=== PATIENT | female | born 1995 | race Caucasian/White ===

== ENCOUNTER 2017-04-19 07:04 | Inpatient (IN) | payer MEDICAID ==
[2017-04-19] MEDS ORDERED: Sodium Chloride 0.9% 10 ML Syringe FLUSH PRN (07:27)
[2017-04-19] MEDS ORDERED: Oxytocin/Lactated Ringers 10 UNIT/1,000 ML BAG IV SCH ×2 (07:30)
[2017-04-19] MEDS: Lactated Ringers 1,000 ML IV SCH ×4 (08:05→14:49)
--- NOTE | 2017-04-19 08:34 | PCM.LDHP ---
L&D History of Present Illness - General Date of Service: 04/19/17 Admit Problem/Dx: Patient Status Order with Admit Dx/Problem 04/19/17 07:27 Patient Status [ADT] Routine Admission Diagnosis/Problem Admission Diagnosis/Problem 04/19/17 08:24 21-year-old 1 para 0 white female with an ENRIQUE of 04/16/2017 in for elective induction of labor for dates Source of Information: Patient History Limitations: Reports: No Limitations - History of Present Illness Introduction:: Hue is a 21-year-old 1 para 0 white female was admitted for elective induction of labor. She is a 40 and 3 evidence weeks gestational age is based upon a certain last and straight start a 22,016 and supported by 2 ultrasounds done 12/01/2016 and 12/29/2016. Her cervix is 2+ centimeters, 80% effaced, very soft, -2 station, mid position and baby is in cephalic presentation. Induction is with Pitocin and artificial rupture membranes. AROM as been done and reveals clear amniotic fluid. [employer] history 1 para 0 her LMP was 07/10/2016, definite caput with somewhat irregular menses. Menarche age 11, cycles q. 20 days, duration 5-7 days , using no control time conception. The patient has had some anxiety during the course of . Her group B strep screen was negative. She has a history of drug use with positive urine drug test for cannabinoids on 2015. She had an abnormal Paps or showing low-grade Andrew triply lesion. Colposcopy done on 10/06/2015 and recommendation was for repeat colposcopy and Pap smear . RhoGAM was given on 02/02/2017 and her T. dap was performed on 02/02/2017. course-patient was seen for her first visit in our clinic at 32 weeks gestational age. She is a transfer from [facility]. She made regular progress from that point on starting at a weight of 229.4 at the time of transfer and increasing to 254 for a 26 pound weight gain during the last trimester. She did make regular fundal height growth within normal parameters. Her vital signs remained stable throughout the course of the visits. Last fundal height was 41 cm and estimated weight is 8+ pounds. Laboratory testing and includes blood which is all negative with negative am asking. She is rubella immune. RPR is nonreactive. Hepatitis B and HIV assays were both negative. GC and Chlamydia both negative. Second trimester testing showed a platelet count of 268,000 and a 1 hour GTT of 84. Her hemoglobin was 11.6. Group B strep screen was negative. Allergies: None Medications: 1. Zantac 75 mg by mouth twice a day 2. vitamins 1 daily Past medical history: 1. Abnormal Pap smear with low-grade squamous intraepithelial lesion as evaluated on 09/08/2016 this encompasses HPV/mild dysplasia. 2. Illicit drug use including rocks is and marijuana, mass over year ago. Also used ecstasy during the summer of 2011 and acid during the summer. She is mushrooms in 2010 and methamphetamine use during the summer. Past surgical history unremarkable Family history: mother is age 44 alive and well. Father is age 45 with sleep apnea, otherwise healthy. One brother age 25 alive and well. Maternal grandmother secondary to smoking issues. Maternal grandfather secondary cause unknown but did have dementia. Paternal grandmother and paternal grandfather both alive and well. No family history of bleeding, , blood clotting, anesthesia problems noted. Social history: Patient is single, lives in [place]. Mother is Kandi Medrano. She does not use any significant loss of alcohol, drugs or tobacco at this time by her report but please see note above under past medical history for history of drug use even early in this . She does not work outside the home. Review of systems. Skin-negative Lungs-no shortness of breath or exercise intolerance Cardiovascular-no chest pain GI-negative -changes associated with Musculoskeletal-minimal swelling of lower extremities Neurologic-negative. Physical exam: In general the patient is a well-developed, well-nourished, overweight white female in no acute distress. She is alert and oriented x3 and appears his stated age. Pregravid weight was 229.4, height is 5 feet 4, body mass index is 34.6. Weight at last visit was 254.4 pounds for a 25 pound weight gain. Her last blood pressure was 122/70. heart rate on last evaluation was 156 beats per minute. Skin is warm and dry without lesions. HEENT, neck and back within normal limits Lungs are clear with good breath sounds in all dang. Cardiovascular exam shows regular rate and rhythm without murmurs. Breast exam is deferred-patient does desire to nurse. Abdomen is protuberant with last fundal height in clinic 41 cm. Baby in vertex presentation by [facility] maneuvers. Cervix is 2+ centimeters/80% effaced/very soft/-2/cephalic presentation/ midposition/artificial rupture membranes reveals clear amniotic fluid. Extremities show minimal edema, neurological exam within normal limits. ` - Related Data Allergies/Adverse Reactions: Allergies Allergy/AdvReac Type Severity Reaction Status Date / Time No Known Allergies Allergy Verified 04/19/17 07:25 Past Medical History Genitourinary History: Reports: STD, Other (See Below) Other Genitourinary History: history of chlamydia and gonorrhea and HPV. [employer] History: Reports: Other (See Below) Other OB/BYN History: LSIL on pap smear, colp done 10/06/2015 Psychiatric History: Reports: Anxiety, Depression - Past Surgical History HEENT Surgical History: Reports: Oral Surgery H&P Review of Systems - Review of Systems: Review Of Systems: See Below L&D Exam - Exam Exam: See Below - Vital Signs Vital Signs: Last Vital Signs Temp 36.9 C 04/19/17 07:27 Pulse 105 H 04/19/17 07:27 Resp 18 04/19/17 07:27 BP 112/76 04/19/17 07:27 Pulse Ox 98 04/19/17 07:27 Weight: 116.709 kg - Patient Data Lab Results last 24 hrs: Laboratory Results - last 24 hr 04/19/17 Range/Units 07:46 WBC 11.58 H (3.98-10.04) K/mm3 RBC 3.89 L (3.98-5.22) M/mm3 Hgb 11.4 (11.2-15.7) gm/L Hct 34.7 (34.1-44.9) % MCV 89.2 (79.4-94.8) fl MCH 29.3 (25.6-32.2) pg MCHC 32.9 (32.2-35.5) g/dl RDW Std Deviation 45.4 (36.4-46.3) fL Plt Count 302 (182-369) K/mm3 MPV 9.9 (9.4-12.3) fl Neut % (Auto) 68.5 (34.0-71.1) % Lymph % (Auto) 22.5 (19.3-51.7) % [place] % (Auto) 7.9 (4.7-12.5) % Eos % (Auto) 0.5 L (0.7-5.8) Baso % (Auto) 0.2 (0.1-1.2) % Neut # (Auto) 7.94 H (1.56-6.13) K/mm3 Lymph # (Auto) 2.60 (1.18-3.74) K/mm3 [place] # (Auto) 0.91 H (0.24-0.36) K/mm3 Eos # (Auto) 0.06 (0.04-0.36) K/mm3 Baso # (Auto) 0.02 (0.01-0.08) K/mm3 Result Diagrams: 04/19/17 07:46 Problem List Initiated/Reviewed/Updated: Yes Orders Last 24hrs: Active Orders 24 hr Category Date Time Status Activity as Tolerated [RC] PFP Care 04/19/17 07:27 Active Communication Order [RC] ASDIRECTED Care 04/19/17 07:27 Active Heart Tones [RC] ASDIRECTED Care 04/19/17 07:27 Active Notify Provider [RC] PFP Care 04/19/17 07:27 Active Notify Provider [RC] PRN Care 04/19/17 07:27 Active Peripheral IV Care [RC] . DIRECTED Care 04/19/17 07:27 Active Vital Signs [RC] PER UNIT ROUTINE Care 04/19/17 07:27 Active Clear Liquid Diet [DIET] Diet 04/19/17 Breakfast Active TYPE AND SCREEN [BBK] Routine Lab 04/19/17 07:46 Received Lactated Ringers [Ringers, Lactated] 1,000 ml Med 04/19/17 07:30 Active IV ASDIRECTED Oxytocin/Lactated Ringers [Pitocin in LR 10 Units/1,000 Med 04/19/17 07:30 Active ML] 10 unit in 1,000 ml IV TITRATE Oxytocin/Lactated Ringers [Pitocin in LR 10 Units/1,000 Med 04/19/17 07:30 Active ML] 10 unit in 1,000 ml IV TITRATE Sodium Chloride 0.9% [Saline Flush] Med 04/19/17 07:27 Active 10 ml FLUSH ASDIRECTED PRN Electronic Heart Tones Ext w TOCO [WOMSER] Ot 04/19/17 07:27 Ordered Routine Electronic Heart Tones Internal [WOMSER] Per Unit Ot 04/19/17 07:27 Ordered Routine Peripheral IV Insertion Adult [OM.PC] Routine Oth 04/19/17 07:27 Ordered Resuscitation Status Routine Resus Stat 04/19/17 07:27 Ordered Medication Orders Lactated Ringer's (Ringers, Lactated) 1,000 mls @ 100 mls/hr IV ASDIRECTED KAREN Last Admin: 04/19/17 08:05 Dose: 100 mls/hr Oxytocin/Lactated Ringer's (Pitocin In Lr 10 Units/1,000 Ml) 10 unit in 1,000 mls @ 500 mls/hr IV TITRATE KAREN PRN Reason: Protocol Oxytocin/Lactated Ringer's (Pitocin In Lr 10 Units/1,000 Ml) 10 unit in 1,000 mls @ 12 mls/hr IV TITRATE KAREN; 2 MUNITS/MIN PRN Reason: Protocol Last Admin: 04/19/17 08:05 Dose: 2 munits/min, 12 mls/hr Sodium Chloride (Saline Flush) 10 ml FLUSH ASDIRECTED PRN PRN Reason: Keep Vein Open Assessment/Plan Comment:: Assessment: 1. 40-3/7 week intrauterine , admitted for elective induction of labor. 2. Group B strep screen negative 3. Patient desires epidural in labor as needed 4. Plans to nurse. 5. History of drug use-multiple drugs to the course of the ureters but most recently only marijuana. 6. Tdap up-to-date Plan: 1. Pitocin/artificial rupture membranes induction this AM. The procedure, risks and benefits, alternatives of care including natural labor onset all discussed in detail patient. She appears to understand and wishes to proceed. 2. Epidural when necessary for pain control 3. Drug screen along with CBC 4 platelet count 4. Support nursing station. I. Anticipate normal spontaneous vaginal delivery.
--- NOTE | 2017-04-19 09:34 | PCM.PREANE ---
Preanesthetic Assessment - Procedure Proposed Procedure: Labor Epidural - Anesthesia/Transfusion/Family Hx Anesthesia History: Prior Anesthesia Without Reaction Type of Anesthesia Reaction: Unknown Family History of Anesthesia Reaction: No Transfusion History: No Prior Transfusion(s) Type of Transfusion Reactions: Reports: Unknown Intubation History: Unknown Additional History: Pt has a history of smoking and drug abuse. Denied any current smoking or drug use. - Review of Systems General: No Symptoms Pulmonary: No Symptoms Cardiovascular: No Symptoms Gastrointestinal: Other (GERD with ) Neurological: No Symptoms Other: Reports: Depression, Anxiety (not medicated ) - Physical Assessment O2 Sat by Pulse Oximetry: 98 Respiratory Rate: 18 Vital Signs: Last Vital Signs Temp 36.9 C 04/19/17 07:27 Pulse 105 H 04/19/17 07:27 Resp 18 04/19/17 07:27 BP 112/76 04/19/17 07:27 Pulse Ox 98 04/19/17 07:27 Height: 1.63 m Weight: 116.709 kg ASA Class: 2 Mental Status: Alert & Oriented x3 Airway Class: Mallampati = 2 Dentition: Reports: Broken Tooth/Teeth (right lower molar ) Thyro-Mental Finger Breadths: 3 Mouth Opening Finger Breadths: 3 ROM/Head Extension: Full Lungs: Clear to auscultation, Normal respiratory effort Cardiovascular: Regular Rhythm, Tachycardia (105) - Lab Values: Laboratory Last Values WBC 11.58 K/mm3 (3.98-10.04) H 04/19/17 07:46 RBC 3.89 M/mm3 (3.98-5.22) L 04/19/17 07:46 Hgb 11.4 gm/L (11.2-15.7) 04/19/17 07:46 Hct 34.7 % (34.1-44.9) 04/19/17 07:46 MCV 89.2 fl (79.4-94.8) 04/19/17 07:46 MCH 29.3 pg (25.6-32.2) 04/19/17 07:46 MCHC 32.9 g/dl (32.2-35.5) 04/19/17 07:46 RDW Std Deviation 45.4 fL (36.4-46.3) 04/19/17 07:46 Plt Count 302 K/mm3 (182-369) 04/19/17 07:46 MPV 9.9 fl (9.4-12.3) 04/19/17 07:46 Neut % (Auto) 68.5 % (34.0-71.1) 04/19/17 07:46 Lymph % (Auto) 22.5 % (19.3-51.7) 04/19/17 07:46 [place] % (Auto) 7.9 % (4.7-12.5) 04/19/17 07:46 Eos % (Auto) 0.5 (0.7-5.8) L 04/19/17 07:46 Baso % (Auto) 0.2 % (0.1-1.2) 04/19/17 07:46 Neut # (Auto) 7.94 K/mm3 (1.56-6.13) H 04/19/17 07:46 Lymph # (Auto) 2.60 K/mm3 (1.18-3.74) 04/19/17 07:46 [place] # (Auto) 0.91 K/mm3 (0.24-0.36) H 04/19/17 07:46 Eos # (Auto) 0.06 K/mm3 (0.04-0.36) 04/19/17 07:46 Baso # (Auto) 0.02 K/mm3 (0.01-0.08) 04/19/17 07:46 Blood Type O NEGATIVE 04/19/17 07:46 - Allergies Allergies/Adverse Reactions: Allergies Allergy/AdvReac Type Severity Reaction Status Date / Time No Known Allergies Allergy Verified 04/19/17 07:25 - Blood Blood Available: No Product(s) Available: None - Anesthesia Plan Pre-Op Medication Ordered: None - Acknowledgements Anesthesia Type Planned: Epidural Pt an Appropriate Candidate for the Planned Anesthesia: Yes Alternatives and Risks of Anesthesia Discussed w Pt/Guardian: Yes Pt/Guardian Understands and Agrees with Anesthesia Plan: Yes PreAnesthesia Questionnaire Genitourinary History: Reports: STD, Other (See Below) Other Genitourinary History: history of chlamydia and gonorrhea and HPV. [employer]ICIAN History: Reports: Other (See Below) Other OB/BYN History: LSIL on pap smear, colp done 10/06/2015 Psychiatric History: Reports: Anxiety, Depression - Past Surgical History HEENT Surgical History: Reports: Oral Surgery - SUBSTANCE USE Smoking Status *Q: Former Smoker Tobacco Use Within Last Twelve Months: Cigarettes Recreational Drug Use History: Yes Recreational Drug Type: Reports: Ecstasy, Marijuana/Hashish, Methamphetamine, Psilocybin (Mushrooms), Other (see below) - HOME MEDS Home Medications: Home Meds Doxylamine Succinate [Unisom] 25 mg PO 04/19/17 [History] Vits #90/Iron Fum/FA [ Formula] 04/19/17 [History] Ranitidine HCl [Zantac 75] 75 mg PO 04/19/17 [History] - CURRENT (IN HOUSE) MEDS Current Meds: Current Medications Lactated Ringer's (Ringers, Lactated) 1,000 mls @ 100 mls/hr IV ASDIRECTED KAREN Last Admin: 04/19/17 08:05 Dose: 100 mls/hr Oxytocin/Lactated Ringer's (Pitocin In Lr 10 Units/1,000 Ml) 10 unit in 1,000 mls @ 500 mls/hr IV TITRATE KAREN PRN Reason: Protocol Oxytocin/Lactated Ringer's (Pitocin In Lr 10 Units/1,000 Ml) 10 unit in 1,000 mls @ 12 mls/hr IV TITRATE KAREN; 2 MUNITS/MIN PRN Reason: Protocol Last Titration: 04/19/17 08:40 Dose: 4 munits/min, 24 mls/hr Sodium Chloride (Saline Flush) 10 ml FLUSH ASDIRECTED PRN PRN Reason: Keep Vein Open
[2017-04-19] MEDS ORDERED: ePHEDrine 50 MG/ML SDV IVPUSH PRN (09:38)
[2017-04-19] MEDS ORDERED: fentaNYL 100 MCG/2 ML SDV EPIDUR PRN (09:38)
[2017-04-19] MEDS ORDERED: diphenhydrAMINE 50 MG/ML SDV IVPUSH PRN (09:38)
[2017-04-19] MEDS ORDERED: Ondansetron 4 MG/2 ML SDV IVPUSH PRN (09:38)
[2017-04-19] MEDS ORDERED: Bupivacaine/fentaNYL/NS 100 ML Bag EPIDUR SCH (09:45)
[2017-04-19] MEDS ORDERED: Methylergonovine 0.2 MG/1 ML Amp ONE (21:36)
--- NOTE | 2017-04-19 21:53 | PCM.SN ---
- Free Text/Narrative Note: Hue is a 21-year-old 1 now para 1001 white female who is admitted on the a.m. of 04/19/2017 for elective induction of labor as she is 40-3/7 weeks gestational age. Pitocin was started and eventually there was artificial rupture membranes with resultant clear amniotic fluid. She progressed steadily to complete by approximately 1915 hours. She pushed for approximately 2 hours and 15 minutes made some progress but became very fatigued. Patient was offered options of continued pushing, or vacuum extraction. The procedures, risks, benefits, follow up and limitations of discussed in detail patient. She selected vacuum extraction which was then performed. Using a Silastic cup in routine fashion the patient was delivered with 1 contraction. The baby was a male weighing thousand 380 g (9 pounds 10.5 ounces) at 2126 hours in a right occiput anterior position. Apgars were 9 and 9. There was a first-degree perineal laceration which was repaired with a short running suture of 3-0 Monocryl. Placenta delivered initials fashion at 2128 hours. Some mild increased bleeding to a total estimated at 400 cc the was then appreciated. Patient was given Pitocin after delivery the baby and eventually given Methergine 0.2 mg IM with this her bleeding became well controlled. No lacerations were otherwise noted in the vagina. Patient's epidural catheter was removed. The umbilical cord had 3 vessels. Placenta was discarded per patient desire. Patient plans to nurse. Condition good.
[2017-04-19] MEDS ORDERED: Lidocaine 1% 20 ML MDV INJECT ONE (22:10)
[2017-04-19] MEDS ORDERED: Methylergonovine 0.2 MG/1 ML Amp IM PRN (22:12)
[2017-04-19] MEDS: Lidocaine 1% 50 ML MDV ONE ×2 (22:13→22:20)
[2017-04-19] MEDS ORDERED: Acetaminophen 325 MG Tab PO PRN (22:33)
[2017-04-19] MEDS ORDERED: Lanolin 100% Cream 7 GM Tube TOP PRN (22:33)
[2017-04-19] MEDS ORDERED: Benzocaine/Menthol 20%-0.5% Spray 56 GM Canister TOP PRN (22:33)
[2017-04-19] MEDS ORDERED: Witch Hazel Medicated Pads 100/Jar TOP PRN (22:33)
[2017-04-19] MEDS: Ibuprofen 600 MG Tab PO PRN (23:04)
[2017-04-20] MEDS: Ibuprofen 600 MG Tab PO PRN ×4 (04:02→20:49)
--- NOTE | 2017-04-20 08:51 | PCM.SN ---
- Free Text/Narrative Note: In general patient is doing very well. She is ambulatory, has minimal lochia and is voiding without problems. Epidural has worn off. She is nursing without concerns. Vital signs stable, patient is afebrile. Abdomen soft, nontender, uterus is just below the umbilicus. Legs are nontender. Some minimal edema is noted. Hemoglobin is 8.8. White count is 19.24 Assessment: 1. day 1, good recovery. 2. Symptoms 8.8-patient had approximately 400 cc of blood loss to delivery which may be a component of the decreased. No bleeding at this time and patient doing well clinically depressed 3. White count is not elevated-patient is a sinus infection. Plan: 1. Routine care. 2. Repeat CBC tomorrow to make sure hemoglobin stabilized and white count is decreased
--- NOTE | 2017-04-20 09:34 | PCM48HPAN ---
Post Anesthesia Note - EVALUATION WITHIN 48HRS OF ANESTHETIC Vital Signs in Normal Range: Yes Patient Participated in Evaluation: Yes Respiratory Function Stable: Yes Airway Patent: Yes Cardiovascular Function Stable: Yes Hydration Status Stable: Yes Pain Control Satisfactory: Yes Nausea and Vomiting Control Satisfactory: Yes Mental Status Recovered: Yes
[2017-04-20] MEDS: Prenatal Multivitamin with Calcium/Folic Acid/Iron Tab PO SCH (09:49)
[2017-04-20] MEDS: Docusate Sodium 100 MG Cap PO PRN (20:49)
[2017-04-21] MEDS: Ibuprofen 600 MG Tab PO PRN (07:23)
[2017-04-21] MEDS: Docusate Sodium 100 MG Cap PO PRN (07:23)
--- NOTE | 2017-04-21 07:37 | PCM.DCSUM1 ---
Discharge Summary - Hospital Course Free Text/Narrative:: Hue is a 21-year-old 1 now para 1001 white female who is admitted on the a.m. of 04/19/2017 for elective induction of labor as she is 40-3/7 weeks gestational age. Pitocin was started and eventually there was artificial rupture membranes with resultant clear amniotic fluid. She progressed steadily to complete by approximately 1915 hours. She pushed for approximately 2 hours and 15 minutes made some progress but became very fatigued. Patient was offered options of continued pushing, or vacuum extraction. The procedures, risks, benefits, follow up and limitations of discussed in detail patient. She selected vacuum extraction which was then performed. Using a Silastic cup in routine fashion the patient was delivered with 1 contraction. The baby was a male infant weighing thousand 380 g (9 pounds 10.5 ounces) at 2126 hours in a right occiput anterior position. Apgars were 9 and 9. There was a first-degree perineal laceration which was repaired with a short running suture of 3-0 Monocryl. Placenta delivered initials fashion at 2128 hours. Some mild increased bleeding to a total estimated at 400 cc the was then appreciated. Patient was given Pitocin after delivery the baby and eventually given Methergine 0.2 mg IM with this her bleeding became well controlled. No lacerations were otherwise noted in the vagina. Patient's epidural catheter was removed. The umbilical cord had 3 vessels. Placenta was discarded per patient desire. Patient plans to nurse. The patient is doing well at this time and is interested in going home. Her hemoglobin has dropped to 7.8 but she is doing well clinically and wishes to treat this medically. - Discharge Data Discharge Date: 04/21/17 Discharge Disposition: Home, Self-Care 01 Condition: Good - Patient Instructions Diet: Regular Diet as Tolerated (Nursing diet was increased calories and calcium ) Activity: As Tolerated (No intercourse or tampons until bleeding resolved) Driving: Do Not Drive Showering/Bathing: May Shower (A. take a bath) - Discharge Plan Home Medications: Home Meds Doxylamine Succinate [Unisom] 25 mg PO 04/19/17 [History] Vits #90/Iron Fum/FA [ Formula] 04/19/17 [History] Ranitidine HCl [Zantac 75] 75 mg PO 04/19/17 [History] Ibuprofen [IJD: Ibuprofen] 600 mg PO Q4H PRN #30 tablet 04/21/17 [Rx] Referrals: Ollie Ponce MD [Physician] - (Return to clinic-Dr. Ponce [facility]-6 weeks.) - Discharge Summary/Plan Comment DC Time >30 min.: No Discharge Summary/Plan Comment: Discharge instructions: 1. Discharge home 2. Regular, high fiber, nursing diet with increased iron intake because of anemia. 3. Precautions given concern increased pain, bleeding, temperature, signs/ symptoms of DVT/PE. 4. Medications per medication was painted, discussed with him given to the patient 5. Return to clinic-Dr. Ponce-[facility]-6 weeks. Diagnosis: 1. 40-3 week intrauterine -delivered 2. Anemia secondary to blood loss at this time delivery Condition: Good - Patient Data Vitals - Most Recent: Last Vital Signs Temp 36.8 C 04/21/17 05:08 Pulse 95 04/21/17 05:08 Resp 15 04/21/17 05:08 BP 119/55 L 04/21/17 05:08 Pulse Ox 99 04/21/17 05:08 Weight - Most Recent: 116.709 kg I&O - Last 24 hours: Intake & Output 04/20/17 04/21/17 04/21/17 22:59 06:59 14:59 Intake Total 600 Balance 600 Lab Results - Last 24 hrs: Laboratory Results - last 24 hr 04/21/17 Range/Units 05:55 WBC 13.51 H (3.98-10.04) K/mm3 RBC 2.62 L (3.98-5.22) M/mm3 Hgb 7.8 L (11.2-15.7) gm/L Hct 24.1 L (34.1-44.9) % MCV 92.0 (79.4-94.8) fl MCH 29.8 (25.6-32.2) pg MCHC 32.4 (32.2-35.5) g/dl RDW Std Deviation 47.0 H (36.4-46.3) fL Plt Count 269 (182-369) K/mm3 MPV 9.6 (9.4-12.3) fl Neut % (Auto) 67.4 (34.0-71.1) % Lymph % (Auto) 23.6 (19.3-51.7) % [place] % (Auto) 6.1 (4.7-12.5) % Eos % (Auto) 2.1 (0.7-5.8) Baso % (Auto) 0.2 (0.1-1.2) % Neut # (Auto) 9.10 H (1.56-6.13) K/mm3 Lymph # (Auto) 3.19 (1.18-3.74) K/mm3 [place] # (Auto) 0.83 H (0.24-0.36) K/mm3 Eos # (Auto) 0.28 (0.04-0.36) K/mm3 Baso # (Auto) 0.03 (0.01-0.08) K/mm3 Manual Slide Review Abnormal smear Med Orders - Current: Current Medications Acetaminophen (Tylenol) 650 mg PO Q4H PRN PRN Reason: mild pain or fever Benzocaine/Menthol (Dermoplast Pain Relief [place]) 0 gm TOP ASDIRECTED PRN PRN Reason: Perineal Comfort Measure Last Admin: 04/19/17 23:02 Dose: 1 applic Docusate Sodium (Colace) 100 mg PO BID PRN PRN Reason: Constipation Last Admin: 04/21/17 07:23 Dose: 100 mg Emollient Ointment (Lansinoh Hpa) 0 gm TOP ASDIRECTED PRN PRN Reason: Sore Nipples Last Admin: 04/20/17 20:49 Dose: 1 tube Ibuprofen (Motrin) 600 mg PO Q4H PRN PRN Reason: Mild pain or fever Last Admin: 04/21/17 07:23 Dose: 600 mg Methylergonovine Maleate (Methergine) 0.2 mg IM Q4H PRN PRN Reason: Bleeding Last Admin: 04/19/17 22:19 Dose: 0.2 mg Prenat Multivit/Young/Iron/Folic Ac ( Plus Iron) 1 each PO DAILY KAREN Last Admin: 04/20/17 09:49 Dose: Not Given Witch Orin (Tucks) 1 pad TOP ASDIRECTED PRN PRN Reason: Hemorrhoid pain Last Admin: 04/19/17 23:02 Dose: 1 applic Discontinued Medications Diphenhydramine HCl (Benadryl) 25 mg IVPUSH Q6H PRN PRN Reason: Pruritis Ephedrine Sulfate (Ephedrine Sulfate) 5 mg IVPUSH ASDIRECTED PRN PRN Reason: Hypotension Fentanyl (Sublimaze) 100 mcg EPIDUR Q3H PRN PRN Reason: Pain Last Admin: 04/19/17 12:33 Dose: 100 mcg Fentanyl/Bupivacaine HCl (Fentanyl/Bupivacaine/Ns 2 Mcg-0.125% 100 Ml) 100 ml EPIDUR ASDIRECTED KAREN Last Admin: 04/19/17 12:33 Dose: 100 ml Lactated Ringer's (Ringers, Lactated) 1,000 mls @ 100 mls/hr IV ASDIRECTED KAREN Last Admin: 04/19/17 14:49 Dose: 100 mls/hr Oxytocin/Lactated Ringer's (Pitocin In Lr 10 Units/1,000 Ml) 10 unit in 1,000 mls @ 500 mls/hr IV TITRATE KAREN PRN Reason: Protocol Oxytocin/Lactated Ringer's (Pitocin In Lr 10 Units/1,000 Ml) 10 unit in 1,000 mls @ 12 mls/hr IV TITRATE KAREN; 2 MUNITS/MIN PRN Reason: Protocol Last Titration: 04/19/17 14:55 Dose: 10 munits/min, 60 mls/hr Oxytocin 10 unit/ Lactated (Ringer's) 1,001 mls @ 3,003 mls/hr IV ONETIME ONE PRN Reason: 500 MUNITS/MIN Stop: 04/19/17 21:45 Last Admin: 04/19/17 23:01 Dose: 500 munits/min, 3,003 mls/hr Lidocaine HCl (Xylocaine 1%) Confirm Administered Dose 50 ml .ROUTE .STK-MED ONE Stop: 04/19/17 21:20 Last Admin: 04/19/17 22:20 Dose: Not Given Lidocaine HCl (Xylocaine 1%) 50 ml INJECT ONETIME ONE Stop: 04/19/17 22:11 Last Admin: 04/19/17 22:20 Dose: 50 ml Methylergonovine Maleate (Methergine) Confirm Administered Dose 0.2 mg .ROUTE .STK-MED ONE Stop: 04/19/17 21:37 Last Admin: 04/19/17 22:13 Dose: Not Given Ondansetron HCl (Zofran) 4 mg IVPUSH ONETIME PRN PRN Reason: Nausea/Vomiting Sodium Chloride (Saline Flush) 10 ml FLUSH ASDIRECTED PRN PRN Reason: Keep Vein Open *Q Meaningful Use (DIS) - VTE *Q VTE Criteria *Q: - Stroke *Q Stroke Criteria *Q: - AMI *Q AMI Criteria *Q:
[2017-04-21] MEDS: Prenatal Multivitamin with Calcium/Folic Acid/Iron Tab PO SCH (10:50)
[2017-04-21 10:57] VITALS: BP 103/74
== END 2017-04-21 10:33 | disposition home or self-care (01) | DRG 775 ==
LOC: JD.OB 07:04 → OBSVTOIN 21:26 → JD.OB 21:26
PROVIDERS: ADMIT Obstetrics & Gynecology; ATTEND Obstetrics & Gynecology
PROC: 10D07Z6 Extraction of Products of Conception, Vacuum, Via Natural or Artificial Opening (ICD-10-PCS; principal; 2017-04-19)
PROC: 10907ZC Drainage of Amniotic Fluid, Therapeutic from Products of Conception, Via Natural or Artificial Opening (ICD-10-PCS; 2017-04-19)
PROC: 3E033VJ Introduction of Other Hormone into Peripheral Vein, Percutaneous Approach (ICD-10-PCS; 2017-04-19)
PROC: 0HQ9XZZ Repair Perineum Skin, External Approach (ICD-10-PCS; 2017-04-19)
PROC: 00HU33Z Insertion of Infusion Device into Spinal Canal, Percutaneous Approach (ICD-10-PCS; 2017-04-19)
DX: O75.81 Maternal exhaustion complicating labor and delivery (principal); O70.0 First degree perineal laceration during delivery; Z3A.40 40 weeks gestation of pregnancy; Z37.0 Single live birth; O99.321 Drug use complicating pregnancy, first trimester; O90.81 Anemia of the puerperium; Z87.898 Personal history of other specified conditions; Z87.891 Personal history of nicotine dependence
CPT/HCPCS: 01967; 36415; 80306; 81003; 85025; 85027; 86850; 86870; 86900; 86901; A9270-GY; J2210; J2590; J3010; J7120

== ENCOUNTER 2019-10-19 05:31 | Inpatient (IN) | payer MEDICAID ==
[2019-10-19] MEDS ORDERED: Sodium Chloride 0.9% 10 ML Syringe FLUSH PRN ×2 (05:50→21:23)
[2019-10-19] MEDS ORDERED: Ondansetron 4 MG/2 ML SDV IVPUSH PRN ×2 (05:50→20:00)
[2019-10-19] MEDS ORDERED: Nalbuphine 10 MG/1 ML Vial IVPUSH PRN (05:50)
[2019-10-19] MEDS ORDERED: Oxytocin/Lactated Ringers 10 UNIT/1,000 ML BAG IV SCH ×2 (06:00)
[2019-10-19] MEDS: Lactated Ringers 1,000 ML IV SCH ×6 (07:50→18:44)
[2019-10-19] MEDS ORDERED: Bupivacaine/fentaNYL/NS 100 ML Bag EPIDUR PRN (07:51)
[2019-10-19] MEDS ORDERED: diphenhydrAMINE 50 MG/ML SDV IVPUSH PRN ×3 (07:51→21:23)
[2019-10-19] MEDS ORDERED: fentaNYL 100 MCG/2 ML SDV EPIDUR PRN (07:51)
--- NOTE | 2019-10-19 08:27 | PCM.PREANE ---
Preanesthetic Assessment - Procedure Proposed Procedure: elizabeth - Anesthesia/Transfusion/Family Hx Anesthesia History: Prior Anesthesia Without Reaction Family History of Anesthesia Reaction: No Transfusion History: No Prior Transfusion(s) Type of Transfusion Reactions: Reports: Unknown Intubation History: Unknown - Review of Systems General: No Symptoms Pulmonary: No Symptoms Cardiovascular: No Symptoms Gastrointestinal: No Symptoms Neurological: No Symptoms Other: Reports: Diabetes (gestational -started 28 weeks) - Physical Assessment Vital Signs: Last Vital Signs Temp Pulse 96 10/19/19 05:42 Resp 16 10/19/19 05:42 BP 113/72 10/19/19 05:42 Pulse Ox 98 10/19/19 05:42 Height: 5 ft 3 in Weight: 115.212 kg ASA Class: 2 Mental Status: Alert & Oriented x3 Airway Class: Mallampati = 1 Dentition: Reports: Normal Dentition Thyro-Mental Finger Breadths: 3 Mouth Opening Finger Breadths: 3 ROM/Head Extension: Full Lungs: Clear to Auscultation, Normal Respiratory Effort Cardiovascular: Regular Rate, Regular Rhythm - Lab Values: Laboratory Last Values WBC 9.31 K/mm3 (3.98-10.04) 10/19/19 06:00 RBC 3.88 M/mm3 (3.98-5.22) L 10/19/19 06:00 Hgb 11.1 gm/dl (11.2-15.7) L 10/19/19 06:00 Hct 34.1 % (34.1-44.9) 10/19/19 06:00 MCV 87.9 fl (79.4-94.8) D 10/19/19 06:00 MCH 28.6 pg (25.6-32.2) 10/19/19 06:00 MCHC 32.6 g/dl (32.2-35.5) 10/19/19 06:00 RDW Std Deviation 39.8 fL (36.4-46.3) 10/19/19 06:00 Plt Count 292 K/mm3 (182-369) 10/19/19 06:00 MPV 9.5 fl (9.4-12.3) 10/19/19 06:00 Neut % (Auto) 67.0 % (34.0-71.1) 10/19/19 06:00 Lymph % (Auto) 24.3 % (19.3-51.7) 10/19/19 06:00 [place] % (Auto) 7.9 % (4.7-12.5) 10/19/19 06:00 Eos % (Auto) 0.5 (0.7-5.8) L 10/19/19 06:00 Baso % (Auto) 0.1 % (0.1-1.2) 10/19/19 06:00 Neut # (Auto) 6.23 K/mm3 (1.56-6.13) H 10/19/19 06:00 Lymph # (Auto) 2.26 K/mm3 (1.18-3.74) 10/19/19 06:00 [place] # (Auto) 0.74 K/mm3 (0.24-0.36) H 10/19/19 06:00 Eos # (Auto) 0.05 K/mm3 (0.04-0.36) 10/19/19 06:00 Baso # (Auto) 0.01 K/mm3 (0.01-0.08) 10/19/19 06:00 POC Glucose 90 mg/dL (70-105) 10/19/19 06:34 - Allergies Allergies/Adverse Reactions: Allergies Allergy/AdvReac Type Severity Reaction Status Date / Time No Known Allergies Allergy Verified 10/19/19 08:14 - Blood Blood Available: No - Acknowledgements Anesthesia Type Planned: Epidural Pt an Appropriate Candidate for the Planned Anesthesia: Yes Alternatives and Risks of Anesthesia Discussed w Pt/Guardian: Yes Pt/Guardian Understands and Agrees with Anesthesia Plan: Yes PreAnesthesia Questionnaire Cardiovascular History: Reports: None Respiratory History: Reports: Asthma (sports induced- inhaler- used last years ago -) Gastrointestinal History: Reports: GERD (with preg) Genitourinary History: Reports: STD, Other (See Below) Other Genitourinary History: history of chlamydia and gonorrhea and HPV. 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 Psychiatric History: Reports: Anxiety (in past), Depression (in past) Endocrine/Metabolic History: Reports: Diabetes, Gestational, Obesity/BMI 30+ Oncologic (Cancer) History: Reports: None - Infectious Disease History Infectious Disease History: Reports: Human Papilloma Virus (HPV) - Past Surgical History HEENT Surgical History: Reports: Oral Surgery Other HEENT Surgeries/Procedures: tooth removed - SUBSTANCE USE Smoking Status *Q: Former Smoker (quit 2-3 years ago) Tobacco Use Within Last Twelve Months: Vaping (2 months before found out preganant) Second Hand Smoke Exposure: No Days Per Week of Alcohol Use: 0 Recreational Drug Use History: No - HOME MEDS Home Medications: Home Meds Vit 90/Iron Fum/Folic [ Formula] 1 tab PO DAILY 04/19/17 [ History] glyBURIDE [Glyburide] 5 mg PO DAILY 10/19/19 [History] hydrOXYzine HCl [Hydroxyzine HCl] 1 tab PO DAILY 10/19/19 [History] - CURRENT (IN HOUSE) MEDS Current Meds: Current Medications Diphenhydramine HCl (Benadryl) 25 mg IVPUSH Q6H PRN PRN Reason: pruritis Ephedrine Sulfate (Ephedrine Sulfate) 5 mg IVPUSH ASDIRECTED PRN PRN Reason: Hypotension Fentanyl (Sublimaze) 100 mcg EPIDUR Q3H PRN PRN Reason: Pain Last Admin: 10/19/19 08:05 Dose: 100 mcg Fentanyl/Bupivacaine HCl (Fentanyl/Bupivacaine/Ns 2 Mcg-0.125% 100 Ml) 100 ml EPIDUR CONTINUOUS PRN PRN Reason: Pain Last Admin: 10/19/19 08:06 Dose: 100 ml Lactated Ringer's (Ringers, Lactated) 1,000 mls @ 100 mls/hr IV ASDIRECTED KAREN Last Admin: 10/19/19 08:15 Dose: 100 mls/hr Oxytocin/Lactated Ringer's (Pitocin In Lr 10 Units/1,000 Ml) 10 unit in 1,000 mls @ 12 mls/hr IV TITRATE KAREN; Protocol Oxytocin/Lactated Ringer's (Pitocin In Lr 10 Units/1,000 Ml) 10 unit in 1,000 mls @ 500 mls/hr IV .CONTINUOUS KAREN Nalbuphine HCl (Nubain) 10 mg IVPUSH Q2H PRN PRN Reason: Pain Ondansetron HCl (Zofran) 4 mg IVPUSH Q4H PRN PRN Reason: Nausea/Vomiting Sodium Chloride (Saline Flush) 10 ml FLUSH ASDIRECTED PRN PRN Reason: Keep Vein Open
[2019-10-19] MEDS: ePHEDrine 50 MG/ML SDV IVPUSH PRN ×2 (08:52→08:58)
[2019-10-19] MEDS ORDERED: Acetaminophen/Butalbital/Caffeine 325-50-40 MG Tab PO PRN (09:32)
--- NOTE | 2019-10-19 11:23 | PCM.LDHP ---
<Megan Peters - Last Filed: 10/19/19 11:54> L&D History of Present Illness - General Date of Service: 10/19/19 Admit Problem/Dx: Patient Status Order with Admit Dx/Problem 10/19/19 05:42 Patient Status [ADT] Routine 10/19/19 05:50 Patient Status [ADT] Routine Admission Diagnosis/Problem Admission Diagnosis/Problem Source of Information: Patient History Limitations: Reports: No Limitations - History of Present Illness Introduction:: Hue is 24yoF , ENRIQUE 10/25/2019, EGA 37 03/27 who presents to L&D after leaking clear fluid at 4:45am this morning. Her LNMP was 02/02/2019 per patient history. She has a history of gestational diabetes which has been controlled with glyburide 5mg QHS. Her first delivered on 04/19/2017 and was a vacuum assisted vaginal delivery. Her first baby was 9lb 10oz at and she says that this baby feels larger. Her blood type is O-. She received RhoGam 08/15. 10/15/2019 BBP wo NST = 06/2810/02/2019 Group B strep negative, wet prep was normal, BPP = 06/2809/17/2019 BPP wo NST = 06/2809/10/2019 BPP wo NST = 06/2808/21/2019: fasting plasma glucose 98, 1 hour glucose 181, 2 hour glucose 103, 3 hour glucose 113 08/15/2019: RPR nonreactive, diabetes screen 154, antibody screen negative 06/24/2019: US showed nuchal fold thickening 04/24/2019: HIV non reactive, rubella reactive, Hepatitis B surface antigen nonreactive, she declined GC/Chlamydia testing She has a prior history of gonorrhea, Chlamydia and HPV. She reports previous treatment for gonorrhea and Chlamydia and denies vaginal symptoms. 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 Pain Score: 7 - Related Data Allergies/Adverse Reactions: Allergies Allergy/AdvReac Type Severity Reaction Status Date / Time No Known Allergies Allergy Verified 10/19/19 08:14 Home Medications: Home Meds Vit 90/Iron Fum/Folic [ Formula] 1 tab PO DAILY 04/19/17 [ History] glyBURIDE [Glyburide] 5 mg PO DAILY 10/19/19 [History] hydrOXYzine HCl [Hydroxyzine HCl] 1 tab PO DAILY 10/19/19 [History] Past Medical History Cardiovascular History: Reports: None Respiratory History: Reports: Asthma (sports induced- inhaler- used last years ago -) Gastrointestinal History: Reports: GERD (with preg) Genitourinary History: Reports: STD, Other (See Below) Other Genitourinary History: history of chlamydia and gonorrhea and HPV. 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, colp done 10/06/2015 Psychiatric History: Reports: Anxiety (in past), Depression (in past) Endocrine/Metabolic History: Reports: Diabetes, Gestational, Obesity/BMI 30+ Oncologic (Cancer) History: Reports: None - Infectious Disease History Infectious Disease History: Reports: Human Papilloma Virus (HPV) - Past Surgical History HEENT Surgical History: Reports: Oral Surgery Other HEENT Surgeries/Procedures: tooth removed Social & Family History - Family History Family Medical History: Noncontributory - Tobacco Use Smoking Status *Q: Former Smoker (quit 2-3 years ago) Second Hand Smoke Exposure: No - Caffeine Use Caffeine Use: Reports: Soda Other Caffeine Use: 3-4 per week - Alcohol Use Days Per Week of Alcohol Use: 0 - Recreational Drug Use Recreational Drug Use: No H&P Review of Systems - Review of Systems: Review Of Systems: See Below General: Reports: No Symptoms HEENT: Reports: No Symptoms Pulmonary: Reports: No Symptoms Cardiovascular: Reports: No Symptoms Gastrointestinal: Reports: No Symptoms Musculoskeletal: Reports: No Symptoms Skin: Reports: No Symptoms Psychiatric: Reports: No Symptoms Neurological: Reports: No Symptoms L&D Exam - Exam Exam: See Below - Vital Signs Vital Signs: Last Vital Signs Temp Pulse 96 10/19/19 05:42 Resp 16 10/19/19 05:42 BP 113/72 10/19/19 05:42 Pulse Ox 98 10/19/19 05:42 Weight: 254 lb - Exam General: Alert, Oriented, Cooperative HEENT: Conjunctiva Clear, Mucosa Moist & [place] Neck: Supple Lungs: Clear to Auscultation, Normal Respiratory Effort Cardiovascular: Regular Rate, Regular Rhythm GI/Abdominal Exam: Soft, Non-Tender Genitourinary: Normal external exam Back Exam: Normal Inspection Extremities: Normal Inspection Skin: Warm, Dry, Intact Psychiatric: Alert, Normal Affect - Patient Data Lab Results Last 24 hrs: Laboratory Results - last 24 hr 10/19/19 10/19/19 10/19/19 Range/Units 06:00 06:34 10:24 WBC 9.31 (3.98-10.04) K/mm3 RBC 3.88 L (3.98-5.22) M/mm3 Hgb 11.1 L (11.2-15.7) gm/dl Hct 34.1 (34.1-44.9) % MCV 87.9 D (79.4-94.8) fl MCH 28.6 (25.6-32.2) pg MCHC 32.6 (32.2-35.5) g/dl RDW Std Deviation 39.8 (36.4-46.3) fL Plt Count 292 (182-369) K/mm3 MPV 9.5 (9.4-12.3) fl Neut % (Auto) 67.0 (34.0-71.1) % Lymph % (Auto) 24.3 (19.3-51.7) % [place] % (Auto) 7.9 (4.7-12.5) % Eos % (Auto) 0.5 L (0.7-5.8) Baso % (Auto) 0.1 (0.1-1.2) % Neut # (Auto) 6.23 H (1.56-6.13) K/mm3 Lymph # (Auto) 2.26 (1.18-3.74) K/mm3 [place] # (Auto) 0.74 H (0.24-0.36) K/mm3 Eos # (Auto) 0.05 (0.04-0.36) K/mm3 Baso # (Auto) 0.01 (0.01-0.08) K/mm3 POC Glucose 90 84 (70-105) mg/dL Result Diagrams: 10/19/19 06:00 Orders Last 24hrs: Active Orders 24 hr Category Date Time Status Patient Status [ADT] Routine ADT 10/19/19 05:50 Active Activity as Tolerated [RC] PFP Care 10/19/19 05:50 Active Blood Glucose Check, Bedside [RC] Q4H Care 10/19/19 10:20 Active Communication Order [RC] ASDIRECTED Care 10/19/19 05:50 Active Heart Tones [RC] ASDIRECTED Care 10/19/19 05:51 Active Non Stress Test [RC] PER UNIT ROUTINE Care 10/19/19 05:42 Active Notify Provider [RC] ASDIRECTED Care 10/19/19 07:51 Active Notify Provider [RC] PFP Care 10/19/19 05:50 Active Notify Provider [RC] PRN Care 10/19/19 05:50 Active Peripheral IV Care [RC] . DIRECTED Care 10/19/19 05:51 Active Vital Signs [RC] PER UNIT ROUTINE Care 10/19/19 05:42 Active Vital Signs [RC] PER UNIT ROUTINE Care 10/19/19 05:50 Active Regular Diet [DIET] Diet 10/19/19 Breakfast Active BLOOD BANK HOLD SPECIMEN [BBK] Stat Lab 10/19/19 05:50 Ordered RAPID PLASMA REAGIN,RPR [CHEM] Routine Lab 10/19/19 06:00 Received Acetaminophen/Butalbital/Caff [Fioricet 325-50-40 MG] Med 10/19/19 09:32 Active 1 tab PO Q4H PRN Bupivacaine/fentaNYL/NS [fentaNYL/Bupivacaine/NS 2 MCG- Med 10/19/19 07:51 Active 0.125% 100 ML] 100 ml EPIDUR CONTINUOUS PRN Lactated Ringers [Ringers, Lactated] 1,000 ml Med 10/19/19 06:00 Active IV ASDIRECTED Nalbuphine [Nubain] Med 10/19/19 05:50 Active 10 mg IVPUSH Q2H PRN Ondansetron [Zofran] Med 10/19/19 05:50 Active 4 mg IVPUSH Q4H PRN Oxytocin/Lactated Ringers [Pitocin in LR 10 Units/1,000 Med 10/19/19 06:00 Active ML] 10 unit in 1,000 ml IV .CONTINUOUS Oxytocin/Lactated Ringers [Pitocin in LR 10 Units/1,000 Med 10/19/19 06:00 Active ML] 10 unit in 1,000 ml IV TITRATE Sodium Chloride 0.9% [Saline Flush] Med 10/19/19 05:50 Active 10 ml FLUSH ASDIRECTED PRN diphenhydrAMINE [Benadryl] Med 10/19/19 07:51 Active 25 mg IVPUSH Q6H PRN ePHEDrine [ePHEDrine sulfate] Med 10/19/19 07:51 Active 5 mg IVPUSH ASDIRECTED PRN fentaNYL [Sublimaze] Med 10/19/19 07:51 Active 100 mcg EPIDUR Q3H PRN Electronic Heart Tones Ext w TOCO [WOMSER] Oth 10/19/19 05:50 Ordered Routine Electronic Heart Tones Internal [WOMSER] Per Unit Oth 10/19/19 05:50 Ordered Routine Peripheral IV Insertion Adult [OM.PC] Routine Oth 10/19/19 05:50 Ordered Resuscitation Status Routine Resus Stat 10/19/19 05:42 Ordered Medication Orders Acetaminophen/Butalbital/Caffeine (Fioricet 325-50-40 Mg) 1 tab PO Q4H PRN PRN Reason: Headache/Pain Last Admin: 10/19/19 09:42 Dose: 1 tab Diphenhydramine HCl (Benadryl) 25 mg IVPUSH Q6H PRN PRN Reason: pruritis Ephedrine Sulfate (Ephedrine Sulfate) 5 mg IVPUSH ASDIRECTED PRN PRN Reason: Hypotension Last Admin: 10/19/19 08:58 Dose: 5 mg Admin: 10/19/19 08:52 Dose: 5 mg Fentanyl (Sublimaze) 100 mcg EPIDUR Q3H PRN PRN Reason: Pain Last Admin: 10/19/19 08:05 Dose: 100 mcg Fentanyl/Bupivacaine HCl (Fentanyl/Bupivacaine/Ns 2 Mcg-0.125% 100 Ml) 100 ml EPIDUR CONTINUOUS PRN PRN Reason: Pain Last Admin: 10/19/19 08:06 Dose: 100 ml Lactated Ringer's (Ringers, Lactated) 1,000 mls @ 100 mls/hr IV ASDIRECTED KAREN Last Admin: 10/19/19 10:01 Dose: 100 mls/hr Infusion: 10/19/19 10:01 Dose: 100 mls/hr Admin: 10/19/19 09:03 Dose: 100 mls/hr Infusion: 10/19/19 09:03 Dose: 100 mls/hr Admin: 10/19/19 08:15 Dose: 100 mls/hr Infusion: 10/19/19 08:15 Dose: 100 mls/hr Admin: 10/19/19 07:50 Dose: 100 mls/hr Oxytocin/Lactated Ringer's (Pitocin In Lr 10 Units/1,000 Ml) 10 unit in 1,000 mls @ 12 mls/hr IV TITRATE KAREN; Protocol Last Titration: 10/19/19 10:30 Dose: 4 munits/min, 24 mls/hr Admin: 10/19/19 10:01 Dose: 2 munits/min, 12 mls/hr Oxytocin/Lactated Ringer's (Pitocin In Lr 10 Units/1,000 Ml) 10 unit in 1,000 mls @ 500 mls/hr IV .CONTINUOUS KAREN Nalbuphine HCl (Nubain) 10 mg IVPUSH Q2H PRN PRN Reason: Pain Ondansetron HCl (Zofran) 4 mg IVPUSH Q4H PRN PRN Reason: Nausea/Vomiting Sodium Chloride (Saline Flush) 10 ml FLUSH ASDIRECTED PRN PRN Reason: Keep Vein Open <Alexei Davila - Last Filed: 10/19/19 12:11> L&D History of Present Illness - General Admit Problem/Dx: Patient Status Order with Admit Dx/Problem 10/19/19 05:42 Patient Status [ADT] Routine 10/19/19 05:50 Patient Status [ADT] Routine Admission Diagnosis/Problem Admission Diagnosis/Problem H&P Review of Systems - Review of Systems: Review Of Systems: See Below L&D Exam - Exam Exam: See Below - Vital Signs Vital Signs: Last Vital Signs Temp Pulse 96 10/19/19 05:42 Resp 16 10/19/19 05:42 BP 113/72 10/19/19 05:42 Pulse Ox 98 10/19/19 05:42 - Patient Data Lab Results Last 24 hrs: Laboratory Results - last 24 hr 10/19/19 10/19/19 10/19/19 Range/Units 06:00 06:34 10:24 WBC 9.31 (3.98-10.04) K/mm3 RBC 3.88 L (3.98-5.22) M/mm3 Hgb 11.1 L (11.2-15.7) gm/dl Hct 34.1 (34.1-44.9) % MCV 87.9 D (79.4-94.8) fl MCH 28.6 (25.6-32.2) pg MCHC 32.6 (32.2-35.5) g/dl RDW Std Deviation 39.8 (36.4-46.3) fL Plt Count 292 (182-369) K/mm3 MPV 9.5 (9.4-12.3) fl Neut % (Auto) 67.0 (34.0-71.1) % Lymph % (Auto) 24.3 (19.3-51.7) % [place] % (Auto) 7.9 (4.7-12.5) % Eos % (Auto) 0.5 L (0.7-5.8) Baso % (Auto) 0.1 (0.1-1.2) % Neut # (Auto) 6.23 H (1.56-6.13) K/mm3 Lymph # (Auto) 2.26 (1.18-3.74) K/mm3 [place] # (Auto) 0.74 H (0.24-0.36) K/mm3 Eos # (Auto) 0.05 (0.04-0.36) K/mm3 Baso # (Auto) 0.01 (0.01-0.08) K/mm3 POC Glucose 90 84 (70-105) mg/dL Result Diagrams: 10/19/19 06:00 - Problem List (1) 37 weeks gestation of SNOMED Code(s): 55986981 ICD Code: Z3A.37 - 37 WEEKS GESTATION OF Status: Acute Current Visit: Yes (2) Premature rupture of membranes SNOMED Code(s): 98817286 ICD Code: O42.90 - ENOCH ROM, 7TH0 BETW RUPT & ONST LABR, UNSP WEEKS OF GEST Status: Acute Current Visit: Yes Qualifiers: PROM onset of labor timing: onset of labor within 24 hours of rupture PROM gestational age: full term Qualified Code(s): O42.02 - Full-term premature rupture of membranes, onset of labor within 24 hours of rupture Problem List Initiated/Reviewed/Updated: No Orders Last 24hrs: Active Orders 24 hr Category Date Time Status Patient Status [ADT] Routine ADT 10/19/19 05:50 Active Activity as Tolerated [RC] PFP Care 10/19/19 05:50 Active Blood Glucose Check, Bedside [RC] Q4H Care 10/19/19 10:20 Active Communication Order [RC] ASDIRECTED Care 10/19/19 05:50 Active Heart Tones [RC] ASDIRECTED Care 10/19/19 05:51 Active Non Stress Test [RC] PER UNIT ROUTINE Care 10/19/19 05:42 Active Notify Provider [RC] ASDIRECTED Care 10/19/19 07:51 Active Notify Provider [RC] PFP Care 10/19/19 05:50 Active Notify Provider [RC] PRN Care 10/19/19 05:50 Active Peripheral IV Care [RC] . DIRECTED Care 10/19/19 05:51 Active Vital Signs [RC] PER UNIT ROUTINE Care 10/19/19 05:42 Active Vital Signs [RC] PER UNIT ROUTINE Care 10/19/19 05:50 Active Regular Diet [DIET] Diet 10/19/19 Breakfast Active BLOOD BANK HOLD SPECIMEN [BBK] Stat Lab 10/19/19 05:50 Ordered RAPID PLASMA REAGIN,RPR [CHEM] Routine Lab 10/19/19 06:00 Received Acetaminophen/Butalbital/Caff [Fioricet 325-50-40 MG] Med 10/19/19 09:32 Active 1 tab PO Q4H PRN Bupivacaine/fentaNYL/NS [fentaNYL/Bupivacaine/NS 2 MCG- Med 10/19/19 07:51 Active 0.125% 100 ML] 100 ml EPIDUR CONTINUOUS PRN Lactated Ringers [Ringers, Lactated] 1,000 ml Med 10/19/19 06:00 Active IV ASDIRECTED Nalbuphine [Nubain] Med 10/19/19 05:50 Active 10 mg IVPUSH Q2H PRN Ondansetron [Zofran] Med 10/19/19 05:50 Active 4 mg IVPUSH Q4H PRN Oxytocin/Lactated Ringers [Pitocin in LR 10 Units/1,000 Med 10/19/19 06:00 Active ML] 10 unit in 1,000 ml IV .CONTINUOUS Oxytocin/Lactated Ringers [Pitocin in LR 10 Units/1,000 Med 10/19/19 06:00 Active ML] 10 unit in 1,000 ml IV TITRATE Sodium Chloride 0.9% [Saline Flush] Med 10/19/19 05:50 Active 10 ml FLUSH ASDIRECTED PRN diphenhydrAMINE [Benadryl] Med 10/19/19 07:51 Active 25 mg IVPUSH Q6H PRN ePHEDrine [ePHEDrine sulfate] Med 10/19/19 07:51 Active 5 mg IVPUSH ASDIRECTED PRN fentaNYL [Sublimaze] Med 10/19/19 07:51 Active 100 mcg EPIDUR Q3H PRN Electronic Heart Tones Ext w TOCO [WOMSER] Oth 10/19/19 05:50 Ordered Routine Electronic Heart Tones Internal [WOMSER] Per Unit Oth 10/19/19 05:50 Ordered Routine Peripheral IV Insertion Adult [OM.PC] Routine Oth 10/19/19 05:50 Ordered Resuscitation Status Routine Resus Stat 10/19/19 05:42 Ordered Medication Orders Acetaminophen/Butalbital/Caffeine (Fioricet 325-50-40 Mg) 1 tab PO Q4H PRN PRN Reason: Headache/Pain Last Admin: 10/19/19 09:42 Dose: 1 tab Diphenhydramine HCl (Benadryl) 25 mg IVPUSH Q6H PRN PRN Reason: pruritis Ephedrine Sulfate (Ephedrine Sulfate) 5 mg IVPUSH ASDIRECTED PRN PRN Reason: Hypotension Last Admin: 10/19/19 08:58 Dose: 5 mg Admin: 10/19/19 08:52 Dose: 5 mg Fentanyl (Sublimaze) 100 mcg EPIDUR Q3H PRN PRN Reason: Pain Last Admin: 10/19/19 08:05 Dose: 100 mcg Fentanyl/Bupivacaine HCl (Fentanyl/Bupivacaine/Ns 2 Mcg-0.125% 100 Ml) 100 ml EPIDUR CONTINUOUS PRN PRN Reason: Pain Last Admin: 10/19/19 08:06 Dose: 100 ml Lactated Ringer's (Ringers, Lactated) 1,000 mls @ 100 mls/hr IV ASDIRECTED KAREN Last Admin: 10/19/19 10:01 Dose: 100 mls/hr Infusion: 10/19/19 10:01 Dose: 100 mls/hr Admin: 10/19/19 09:03 Dose: 100 mls/hr Infusion: 10/19/19 09:03 Dose: 100 mls/hr Admin: 10/19/19 08:15 Dose: 100 mls/hr Infusion: 10/19/19 08:15 Dose: 100 mls/hr Admin: 10/19/19 07:50 Dose: 100 mls/hr Oxytocin/Lactated Ringer's (Pitocin In Lr 10 Units/1,000 Ml) 10 unit in 1,000 mls @ 12 mls/hr IV TITRATE KAREN; Protocol Last Titration: 10/19/19 11:45 Dose: 6 munits/min, 36 mls/hr Titration: 10/19/19 10:30 Dose: 4 munits/min, 24 mls/hr Admin: 10/19/19 10:01 Dose: 2 munits/min, 12 mls/hr Oxytocin/Lactated Ringer's (Pitocin In Lr 10 Units/1,000 Ml) 10 unit in 1,000 mls @ 500 mls/hr IV .CONTINUOUS KAREN Nalbuphine HCl (Nubain) 10 mg IVPUSH Q2H PRN PRN Reason: Pain Ondansetron HCl (Zofran) 4 mg IVPUSH Q4H PRN PRN Reason: Nausea/Vomiting Sodium Chloride (Saline Flush) 10 ml FLUSH ASDIRECTED PRN PRN Reason: Keep Vein Open Assessment/Plan Comment:: Plan induction and delivery Patient's history and physical reviewed and discussed with student exam confirmed.
--- NOTE | 2019-10-19 15:29 | PCM.SN ---
- Free Text/Narrative Note: Cervix is 7-8 cm dilated 100% effaced anterior soft regard 1 heart rate and reactive heart tones. Exam at 1335. UAC placed without difficulty. Amniotic fluid is clear. Continuing oxytocin. Sonogram has been ordered as the cephalic presentation and still at a -3 to -4 station to obtain estimated weight.
--- NOTE | 2019-10-19 16:01 | PCM.SN ---
- Free Text/Narrative Note: Patient has now completed and will begin pushing. Whitman catheter has been removed.
--- NOTE | 2019-10-19 16:26 | US ---
Follow-up obstetrical ultrasound: Multiple real-time images were obtained transabdominally. Comparison: Previous obstetrical ultrasounds are available, most recent study is 10/05/19. Dates: Current ultrasound: ENRIQUE 11/01/19, gestational age 38 weeks 1 day Earliest ultrasound (06/22/19): ENRIQUE 11/03/19, gestational age 37 weeks 6 days presentation: Cephalic Placenta: Anterior with cervix not well seen and no direct visualization of the inferior placenta is seen Amniotic fluid: RADHA 5.6 cm (low) Measurements: BPD: 9.16 cm - 37 weeks 2 days Head circumference: 34.19 cm to 39 weeks 3 days Abdominal circumference: 33.92 cm - 37 weeks 6 days Femur length: 7.39 cm 37 weeks 6 days Estimated weight: 3345 g (7 lbs. 6 oz.), estimated weight 58 percentile Heart rate: 126 BPM Impression: 1. Single intrauterine fetus cephalic in presentation. Dates as noted above. 2. Low amniotic fluid index. 3. No other complicating process is seen on current ultrasound exam. Diagnostic code #3 This report was dictated in [place] Standard Time
--- NOTE | 2019-10-19 16:52 | PCM.SN ---
- Free Text/Narrative Note: Vision continues to push cephalic presentation at a -2 station. Category 1 heart rate.
--- NOTE | 2019-10-19 17:48 | PCM.SN ---
- Free Text/Narrative Note: Patient has been pushing almost 2 hours now. heart tones are stable. Patient's cephalic presentation at 0 station. Left occiput anterior. Epidural wearing off for the past 20-30 minutes.
--- NOTE | 2019-10-19 17:58 | PCM.SN ---
- Free Text/Narrative Note: Patient's cephalic presentation 0 station. Patient is getting tired. heart tone electrode placed. Patient has now been pushing for over 2 hours and 20 minutes will make a decision whether to proceed with pushing or consider section patient and mother are in agreement.
--- NOTE | 2019-10-19 18:05 | PCM.SN ---
- Free Text/Narrative Note: Whitman catheter placed gravity drainage. Patient has made no additional progress in descent of the presenting part in (LOAvertex) is exhausted. Patient and mother agree with proceeding with section. Station is too high to attempt vacuum extraction or forceps.
[2019-10-19] MEDS ORDERED: Citric Acid/Sodium Citrate Solution 30 ML Cup ONE (18:06)
[2019-10-19] MEDS ORDERED: Metoclopramide 10 MG/2 ML SDV ONE (18:06)
[2019-10-19] MEDS ORDERED: Citric Acid/Sodium Citrate Solution 30 ML Cup PO ONE (18:18)
[2019-10-19] MEDS ORDERED: Metoclopramide 10 MG/2 ML SDV IVPUSH ONE (18:18)
[2019-10-19] MEDS ORDERED: Bupivacaine 0.5% 30 ML SDV ONE (18:28)
[2019-10-19] MEDS ORDERED: Morphine PF 10 MG/10 ML SDV ONE (18:47)
[2019-10-19] MEDS ORDERED: Phenylephrine/Normal Saline 100 MCG/ML 10 ML Syringe ONE ×3 (18:51→19:22)
[2019-10-19] MEDS ORDERED: ceFAZolin 1 GM Vial ONE ×2 (18:58)
[2019-10-19] MEDS ORDERED: Oxytocin 10 Units/1 ML SDV ONE ×2 (19:09→19:33)
--- NOTE | 2019-10-19 19:57 | PCM.OPNOTE ---
- General Post-Op/Procedure Note Date of Surgery/Procedure: 10/19/19 Operative Procedure(s): Low segment transverse section Pre Op Diagnosis: 37+ weeks estimated gestational age, premature rupture membranes and labor onset less than 24 hours, gestational diabetes, prolonged second stage and failure to progress. Post-Op Diagnosis: Same Anesthesia Technique: Epidural Primary Surgeon: Alexei Davila Secondary Surgeon: Shanique Pacheco Anesthesia Provider: Joshua Manzo Fire Ranger: Megan Peters ([email or web address]) Reason Fire Ranger Was Necessary: Retraction, assist in delivery, decrease comorbidity and mortality. Role of Fire Ranger: Retraction, assist in delivery, decrease comorbidity and mortality. Fluid Replacement, Intraop: 2,200 Output, Urine Amount: 100 EBL in mLs: 500 Drain/Tube Comments:: Whitman Complications: None Condition: Good Free Text/Narrative:: Intake & Output 10/19/19 10/19/19 10/19/19 06:59 14:59 22:59 Intake Total 4000 Balance 4000 The patient was transported to the operating room and placed under epidural anesthesia in the supine position with a wedge under the right hip and right flank. Whitman catheter had been placed gravity drainage while patient was in labor and delivery. SCDs in place and functioning prior surgery. Ancef 3 g given intravenously prior surgery. Timeout performed.Trak-X placed. Vaginal prep performed with iodine. Abdominal prep performed. Patient prepared and draped in a sterile fashion. Adequate level of anesthesia was confirmed and patient's significant other brought to the operating room. A low segment transverse incision was made after injecting the planned incision area with 20 mL of 0.5% Marcaine. Incision was carried sharp section to into the anterior fascia peritoneal cavity was entered without difficulty. Bladder flap was created and pushed caudad. A low segment transverse was performed. Vacuum extraction was required for delivery of the 's head through the abdominal incision. In the green for less than 1 minute 2. The male liveborn was delivered at 1907 hrs. 8 lbs. 9 oz.( 3870 grams) Apgars 8/9. Dr. Souza attrition in attendance at delivery. Cord blood was collected from three-vessel cord. The placenta was removed manually inspected and discarded. Endometrial cavity was inspected. Sponge needle pack asthma count correct times one and the uterine incision closed in 2 layers. First layer running locking suture of 0 Monocryl. Second layer horizontal modified Lembert indications suture. One additional [id number] suture at the junction of the left and middle third of the incision. Hemostasis was obtained and uterus replaced into the abdominal cavity. The uterine incision reinspected. Sponge needle pack asthma sharp count correct 2. Abdominal cavity was then closed with running suture of #1 PDS. Skin was closed with subcuticular 3-0 Monocryl on Kevin needle. Dermabond Preneo applied. Clots were cleaned from the vagina at the end of the procedure. Patient was transported postanesthesia care unit in satisfactory condition. No blood transfusions were required. No blood transfusions are expected at present time. This note was created, at least in part, by the use of [employer] voice dictation system. Inadvertent typographical errors, due to software recognition problems, may exist.
[2019-10-19] MEDS ORDERED: fentaNYL 100 MCG/2 ML SDV IVPUSH PRN (20:00)
--- NOTE | 2019-10-19 20:02 | PCM.POSTAN ---
POST ANESTHESIA ASSESSMENT - MENTAL STATUS Mental Status: Alert, Oriented - VITAL SIGNS Vital Signs: Last Vital Signs Temp 99.7 F 10/19/19 19:45 Pulse 108 H 10/19/19 19:45 Resp 17 10/19/19 19:45 BP 105/43 L 10/19/19 19:45 Pulse Ox 95 10/19/19 19:45 - RESPIRATORY Respiratory Status: Respiratory Rate WNL, Airway Patent, O2 Saturation Stable - CARDIOVASCULAR CV Status: Pulse Rate WNL, Blood Pressure Stable - GASTROINTESTINAL GI Status: No Symptoms - PAIN Pain Score: 0 (post epidural) - POST OP HYDRATION Hydration Status: Adequate & Stable
[2019-10-19] MEDS ORDERED: Ketorolac 30 MG/ML SDV IVPUSH SCH (20:15)
[2019-10-19] MEDS ORDERED: Witch Hazel Medicated Pads 40/Jar TOP PRN (21:23)
[2019-10-19] MEDS ORDERED: Ondansetron 4 MG/2 ML SDV IV PRN (21:23)
[2019-10-19] MEDS ORDERED: Dextrose 5%-Lactated Ringers 1,000 ML IV SCH (21:23)
[2019-10-19] MEDS ORDERED: Naloxone 0.4 MG/ML SDV IVPUSH PRN (21:23)
[2019-10-19] MEDS ORDERED: Acetaminophen 325 MG Tab PO PRN (21:23)
[2019-10-19] MEDS ORDERED: ePHEDrine 50 MG/ML SDV IVPUSH PRN (21:23)
[2019-10-20] MEDS: Simethicone 80 MG Tab.Chew PO SCH ×4 (00:04→20:00)
[2019-10-20] MEDS: Ketorolac 30 MG/ML SDV IVPUSH SCH ×3 (02:17→14:18)
[2019-10-20] MEDS: Acetaminophen/oxyCODONE 325-5 MG Tab PO PRN ×3 (10:17→21:06)
[2019-10-20] MEDS ORDERED: Furosemide 20 MG/2 ML VIAL IVPUSH ONE (10:41)
[2019-10-20] MEDS ORDERED: Iopamidol 755 Mg/ML 100 ML Bottle IVPUSH ONE (10:47)
[2019-10-20] MEDS ORDERED: Sodium Chloride 0.9% 10 ML Syringe FLUSH PRN (10:47)
[2019-10-20] MEDS ORDERED: Sodium Chloride 0.9% 100 ML IV SCH ×2 (11:00→22:00)
--- NOTE | 2019-10-20 11:00 | PCM.PN ---
- General Info Date of Service: 10/20/19 Functional Status: Reports: Pain Controlled - Review of Systems General: Reports: Weakness HEENT: Reports: No Symptoms Pulmonary: Reports: Shortness of Breath, Other (not able to wean off O2, O2 sats drop as soon as O2 removed on 1L/min) Cardiovascular: Reports: Edema, Lightheadedness, Other (felt faint when attempting to ambulate) Gastrointestinal: Reports: No Symptoms Genitourinary: Reports: No Symptoms (treviño remains in place) Musculoskeletal: Reports: No Symptoms Skin: Reports: Pallor, Diaphoresis (with ambulation) Neurological: Reports: No Symptoms Psychiatric: Reports: No Symptoms - Patient Data Vitals - Most Recent: Last Vital Signs Temp 98.8 F 10/20/19 02:46 Pulse 98 10/20/19 02:46 Resp 16 10/20/19 07:00 BP 91/47 L 10/20/19 02:46 Pulse Ox 94 L 10/20/19 07:00 Weight - Most Recent: 254 lb I&O - Last 24 Hours: Intake & Output 10/19/19 10/20/19 10/20/19 22:59 06:59 14:59 Intake Total 2500 2100 780 Output Total 200 275 350 Balance 2300 1825 430 Lab Results Last 24 Hours: Laboratory Results - last 24 hr 10/19/19 10/19/19 10/19/19 Range/Units 06:00 06:00 14:40 WBC (3.98-10.04) K/mm3 RBC (3.98-5.22) M/mm3 Hgb (11.2-15.7) gm/dl Hct (34.1-44.9) % MCV (79.4-94.8) fl MCH (25.6-32.2) pg MCHC (32.2-35.5) g/dl RDW Std Deviation (36.4-46.3) fL Plt Count (182-369) K/mm3 MPV (9.4-12.3) fl Neut % (Auto) (34.0-71.1) % Lymph % (Auto) (19.3-51.7) % [place] % (Auto) (4.7-12.5) % Eos % (Auto) (0.7-5.8) Baso % (Auto) (0.1-1.2) % Neut # (Auto) (1.56-6.13) K/mm3 Lymph # (Auto) (1.18-3.74) K/mm3 [place] # (Auto) (0.24-0.36) K/mm3 Eos # (Auto) (0.04-0.36) K/mm3 Baso # (Auto) (0.01-0.08) K/mm3 POC Glucose 72 (70-105) mg/dL RPR Non-reactive (NONREACTIVE) Blood Type O NEGATIVE Gel Antibody Screen Positive 10/19/19 10/20/19 Range/Units 16:38 05:50 WBC 12.87 H (3.98-10.04) K/mm3 RBC 2.98 L (3.98-5.22) M/mm3 Hgb 8.5 L D (11.2-15.7) gm/dl Hct 26.9 L (34.1-44.9) % MCV 90.3 (79.4-94.8) fl MCH 28.5 (25.6-32.2) pg MCHC 31.6 L (32.2-35.5) g/dl RDW Std Deviation 40.9 (36.4-46.3) fL Plt Count 223 (182-369) K/mm3 MPV 9.4 (9.4-12.3) fl Neut % (Auto) 80.3 H (34.0-71.1) % Lymph % (Auto) 13.4 L (19.3-51.7) % [place] % (Auto) 5.8 (4.7-12.5) % Eos % (Auto) 0.2 L (0.7-5.8) Baso % (Auto) 0.1 (0.1-1.2) % Neut # (Auto) 10.34 H (1.56-6.13) K/mm3 Lymph # (Auto) 1.72 (1.18-3.74) K/mm3 [place] # (Auto) 0.75 H (0.24-0.36) K/mm3 Eos # (Auto) 0.03 L (0.04-0.36) K/mm3 Baso # (Auto) 0.01 (0.01-0.08) K/mm3 POC Glucose 98 (70-105) mg/dL RPR (NONREACTIVE) Blood Type Gel Antibody Screen Med Orders - Current: Current Medications Acetaminophen (Tylenol) 650 mg PO Q4H PRN PRN Reason: mild pain or fever Diphenhydramine HCl (Benadryl) 25 mg IVPUSH Q6H PRN PRN Reason: Itching or Nausea Docusate Sodium (Colace) 100 mg PO Q12H PRN PRN Reason: Constipation Ephedrine Sulfate (Ephedrine Sulfate) 5 mg IVPUSH SEECOMMENT PRN PRN Reason: Other Fentanyl (Sublimaze) 50 mcg IVPUSH Q5M PRN PRN Reason: Pain Sodium Chloride (Normal Saline) 100 mls @ 75 mls/hr IV ASDIRECTED [facility] Ibuprofen (Motrin) 600 mg PO Q6H PRN PRN Reason: mild pain or fever Ketorolac Tromethamine (Toradol) 30 mg IVPUSH Q6H [facility] Stop: 10/20/19 14:01 Last Admin: 10/20/19 08:30 Dose: 30 mg Naloxone HCl (Narcan) 0.1 mg IVPUSH SEECOMMENT PRN PRN Reason: Respiratory Depression Ondansetron HCl (Zofran) 4 mg IV Q4H PRN PRN Reason: Nausea/Vomiting Oxycodone/Acetaminophen (Percocet 325-5 Mg) 1 tab PO Q4H PRN PRN Reason: Pain (moderate 4-6) Last Admin: 10/20/19 10:17 Dose: 1 tab Simethicone (Simethicone) 80 mg PO PCBED [facility] Last Admin: 10/20/19 08:40 Dose: 80 mg Sodium Chloride (Saline Flush) 10 ml FLUSH ASDIRECTED PRN PRN Reason: Keep Vein Open Sodium Chloride (Saline Flush) 10 ml FLUSH ONETIME PRN PRN Reason: IV FLUSH Witch Orin (Tucks) 1 pad TOP ASDIRECTED PRN PRN Reason: Perineal Comfort Measure Discontinued Medications Acetaminophen/Butalbital/Caffeine (Fioricet 325-50-40 Mg) 1 tab PO Q4H PRN PRN Reason: Headache/Pain Last Admin: 10/19/19 09:42 Dose: 1 tab Bupivacaine HCl (Marcaine 0.5%) Confirm Administered Dose 30 ml .ROUTE .STK-MED ONE Stop: 10/19/19 18:29 Last Admin: 10/19/19 19:01 Dose: 20 ml Cefazolin Sodium (Ancef) Confirm Administered Dose 2 gm .ROUTE .STK-MED ONE Stop: 10/19/19 18:59 Cefazolin Sodium (Ancef) Confirm Administered Dose 1 gm .ROUTE .STK-MED ONE Stop: 10/19/19 18:59 Citric Acid/Sodium Citrate (Bicitra Solution) Confirm Administered Dose 30 ml .ROUTE .STK-MED ONE Stop: 10/19/19 18:07 Last Admin: 10/19/19 18:15 Dose: 30 ml Citric Acid/Sodium Citrate (Bicitra Solution) 30 ml PO ONETIME ONE Stop: 10/19/19 18:19 Diphenhydramine HCl (Benadryl) 25 mg IVPUSH Q6H PRN PRN Reason: pruritis Diphenhydramine HCl (Benadryl) 25 mg IVPUSH Q6H PRN PRN Reason: Pruritis Ephedrine Sulfate (Ephedrine Sulfate) 5 mg IVPUSH ASDIRECTED PRN PRN Reason: Hypotension Last Admin: 10/19/19 08:58 Dose: 5 mg Fentanyl (Sublimaze) 100 mcg EPIDUR Q3H PRN PRN Reason: Pain Last Admin: 10/19/19 08:05 Dose: 100 mcg Fentanyl/Bupivacaine HCl (Fentanyl/Bupivacaine/Ns 2 Mcg-0.125% 100 Ml) 100 ml EPIDUR CONTINUOUS PRN PRN Reason: Pain Last Admin: 10/19/19 08:06 Dose: 100 ml Furosemide (Lasix) 20 mg IVPUSH NOW ONE Stop: 10/20/19 10:42 Last Admin: 10/20/19 10:52 Dose: 20 mg Lactated Ringer's (Ringers, Lactated) 1,000 mls @ 100 mls/hr IV ASDIRECTED KAREN Last Admin: 10/19/19 18:44 Dose: 100 mls/hr Oxytocin/Lactated Ringer's (Pitocin In Lr 10 Units/1,000 Ml) 10 unit in 1,000 mls @ 12 mls/hr IV TITRATE KAREN; Protocol Last Titration: 10/19/19 13:44 Dose: 12 munits/min, 72 mls/hr Oxytocin/Lactated Ringer's (Pitocin In Lr 10 Units/1,000 Ml) 10 unit in 1,000 mls @ 500 mls/hr IV .CONTINUOUS KAREN Dextrose/Lactated Ringer's (Dextrose 5%-Lactated Ringers) 1,000 mls @ 125 mls/ hr IV ASDIRECTED [facility] Stop: 10/20/19 05:22 Last Admin: 10/20/19 00:05 Dose: 125 mls/hr Iopamidol (Isovue-370 (76%)) 100 ml IVPUSH ONETIME ONE Stop: 10/20/19 10:48 Ketorolac Tromethamine (Toradol) 30 mg IVPUSH ONETIME [facility] Last Admin: 10/19/19 20:07 Dose: 30 mg Metoclopramide HCl (Reglan) Confirm Administered Dose 10 mg .ROUTE .STK-MED ONE Stop: 10/19/19 18:07 Last Admin: 10/19/19 18:15 Dose: 10 mg Metoclopramide HCl (Reglan) 10 mg IVPUSH ONETIME ONE Stop: 10/19/19 18:19 Morphine Sulfate (Duramorph Pf) Confirm Administered Dose 10 mg .ROUTE .STK-MED ONE Stop: 10/19/19 18:48 Nalbuphine HCl (Nubain) 10 mg IVPUSH Q2H PRN PRN Reason: Pain Ondansetron HCl (Zofran) 4 mg IVPUSH Q4H PRN PRN Reason: Nausea/Vomiting Last Admin: 10/19/19 19:59 Dose: 4 mg Ondansetron HCl (Zofran) 4 mg IVPUSH ONETIME PRN PRN Reason: Nausea/Vomiting Oxytocin (Pitocin) Confirm Administered Dose 20 unit .ROUTE .STK-MED ONE Stop: 10/19/19 19:10 Oxytocin (Pitocin) Confirm Administered Dose 20 unit .ROUTE .STK-MED ONE Stop: 10/19/19 19:34 Phenylephrine HCl (Phenylephrine In Ns 100 Mcg/Ml) Confirm Administered Dose 1 mg .ROUTE .STK-MED ONE Stop: 10/19/19 18:52 Phenylephrine HCl (Phenylephrine In Ns 100 Mcg/Ml) Confirm Administered Dose 1 mg .ROUTE .STK-MED ONE Stop: 10/19/19 19:11 Phenylephrine HCl (Phenylephrine In Ns 100 Mcg/Ml) Confirm Administered Dose 1 mg .ROUTE .STK-MED ONE Stop: 10/19/19 19:23 Sodium Chloride (Saline Flush) 10 ml FLUSH ASDIRECTED PRN PRN Reason: Keep Vein Open - Exam General: Alert, Oriented HEENT: Mucous Membr. Moist/[place] Neck: Supple Lungs: Decreased Breath Sounds (posterior inferiot bilaterally, no abnormal breath sounds) Cardiovascular: Regular Rate, Regular Rhythm, No Murmurs GI/Abdominal Exam: Soft, Non-Tender, No Distention, Other (incision normal, no bleeding, swelling or drainage) Extremities: Non-Tender, Normal Capillary Refill, Pedal Edema (1+ bilateral) Skin: Warm, Dry, Intact Wound/Incisions: Healing Well, No Drainage Neurological: No New Focal Deficit Psy/Mental Status: Alert, Normal Affect, Normal Mood - Problem List & Annotations (1) 37 weeks gestation of SNOMED Code(s): 86588657 Code(s): Z3A.37 - 37 WEEKS GESTATION OF Status: Acute Current Visit: Yes (2) Premature rupture of membranes SNOMED Code(s): 01067746 Code(s): O42.90 - ENOCH ROM, 7TH0 BETW RUPT & ONST LABR, UNSP WEEKS OF GEST Status: Acute Current Visit: Yes Qualifiers: PROM onset of labor timing: onset of labor within 24 hours of rupture PROM gestational age: full term Qualified Code(s): O42.02 - Full-term premature rupture of membranes, onset of labor within 24 hours of rupture (3) Anemia due to acute blood loss SNOMED Code(s): 970270030 Code(s): D62 - ACUTE POSTHEMORRHAGIC ANEMIA Status: Acute Current Visit: Yes - Problem List Review Problem List Initiated/Reviewed/Updated: No - My Orders Last 24 Hours: My Active Orders 10/19/19 21:23 Activity as Tolerated [RC] .Routine Ambulate [RC] PER UNIT ROUTINE Antiembolic Devices [RC] PER UNIT ROUTINE Communication Order [RC] PER UNIT ROUTINE Communication Order [RC] PER UNIT ROUTINE Communication Order [RC] PER UNIT ROUTINE Intake and Output [RC] QSHIFT May Shower [RC] PER UNIT ROUTINE Notify Provider Intake and Out [RC] ASDIRECTED Peripheral IV Care [RC] Q2HR RT Incentive Spirometry [RC] Q1HWA Acetaminophen [Tylenol] 650 mg PO Q4H PRN Acetaminophen/oxyCODONE [Percocet 325-5 MG] 1 tab PO Q4H PRN Docusate Sodium [Colace] 100 mg PO Q12H PRN Naloxone [Narcan] 0.1 mg IVPUSH SEECOMMENT PRN Ondansetron [Zofran] 4 mg IV Q4H PRN Sodium Chloride 0.9% [Saline Flush] 10 ml FLUSH ASDIRECTED PRN [place] Orin [Tucks] 1 pad TOP ASDIRECTED PRN diphenhydrAMINE [Benadryl] 25 mg IVPUSH Q6H PRN ePHEDrine [ePHEDrine sulfate] 5 mg IVPUSH SEECOMMENT PRN Abdominal Binder [OM.PC] Per Unit Routine Assess Lochia [WOMSER] Per Unit Routine Assess Uterine Involution [WOMSER] Per Unit Routine Breast Pump [WOMSER] Per Unit Routine Convert IV to Saline Lock [OM.PC] Routine Medication Administration Instruction [OM.PC] Routine Peripheral IV Discontinue [OM.PC] Routine Peripheral IV Insertion Adult [OM.PC] Routine Saline Lock Insert [OM.PC] Routine Sequential Compression Device [OM.PC] Per Unit Routine 10/19/19 22:00 Simethicone 80 mg PO PCBED 10/19/19 Dinner Regular Diet [DIET] 10/20/19 02:00 Ketorolac [Toradol] 30 mg IVPUSH Q6H 10/20/19 10:14 EKG Documentation Completion [RC] STAT 10/20/19 10:24 CTA Chest W WO Contrast [Ang Chest] [CT] Routine 10/20/19 10:43 CMP [COMPREHENSIVE METABOLIC PN,CMP] [CHEM] Stat 10/20/19 10:47 Sodium Chloride 0.9% [Saline Flush] 10 ml FLUSH ONETIME PRN 10/20/19 11:00 Sodium Chloride 0.9% [Normal Saline] 100 ml IV ASDIRECTED 10/20/19 16:00 CBC WITH AUTO DIFF [HEME] Timed CMP [COMPREHENSIVE METABOLIC PN,CMP] [CHEM] Stat 10/20/19 19:59 Urinary Catheter Removal [RC] Per Unit Routine 10/20/19 20:00 Ibuprofen [Motrin] 600 mg PO Q6H PRN - Assessment Assessment:: Patient Having difficulty weaning off of oxygen at present on 1 L/m. Patient attempted to ambulate today and became dizzy requiring patient to be re- transported to room via wheelchair. Patient will have CT with contrast performed to evaluate lung dang and also ordered CMP for electrolytes. Repeat CBC and CMP the septum and approximate 1600 hrs. Hemoglobin this morning A.5 down from 11.1 yesterday preop. Treviño catheter remains in place, patient given Lasix 20 mg IV. Electrocardiogram read by emergency room physician showed borderline right axis deviation sinus rhythm poor R-wave progression diffuse early repolarization pattern. Otherwise normal ECG. - Plan Plan:: Plan induction and delivery Patient's history and physical reviewed and discussed with student exam confirmed.
--- NOTE | 2019-10-20 12:01 | PCM.SN ---
- Free Text/Narrative Note: Patient returned from CT scan report is pending. Sodium 133 will replace with dietary measures. No heavy vaginal bleeding 950 mL of urine measured output for the past 5 hours. Patient did receive Lasix as noted above and will continue Whitman catheter for now to allow for increased urine output. Patient states she is actually breathing easier now except when she talked for a long period time she feels somewhat short of breath. Repeat CBC and CMP of been ordered for 1600 hrs. Patient is stable at present time and enjoying video check with friends/ relatives. Patient states she is feeling better than 2 hours ago.
[2019-10-20] MEDS: ceFAZolin 1 GM in Premix Bag 1 BAG IV SCH (13:09)
--- NOTE | 2019-10-20 14:29 | PCM48HPAN ---
Post Anesthesia Note - EVALUATION WITHIN 48HRS OF ANESTHETIC Vital Signs in Normal Range: Yes Patient Participated in Evaluation: Yes Respiratory Function Stable: Yes (patient on 0.5L NC O2) Airway Patent: Yes Cardiovascular Function Stable: Yes Hydration Status Stable: Yes Pain Control Satisfactory: Yes (some mild tenderness at incision) Nausea and Vomiting Control Satisfactory: Yes Mental Status Recovered: Yes Vital Signs: Last Vital Signs Temp 37.1 C 10/20/19 02:46 Pulse 98 10/20/19 02:46 Resp 16 10/20/19 07:00 BP 91/47 L 10/20/19 02:46 Pulse Ox 94 L 10/20/19 07:00 - COMMENTS/OBSERVATIONS Free Text/Narrative:: I guess they were initially concerned about possible PE because she wasn't holding SpO2 without support. Per patient she "had some fluid" on her lungs and they are treating her with antibiotics. She is somewhat tender at the incision site. She is on 0.5L NC O2 and breathing at a normal rate and depth without any signs of distress. She says she feels fine. The epidural worked well. She has no further questions or concerns when asked.
[2019-10-20] MEDS: Docusate Sodium 100 MG Cap PO PRN (21:03)
[2019-10-20] MEDS: Ibuprofen 600 MG Tab PO PRN (21:04)
[2019-10-21] MEDS: Simethicone 80 MG Tab.Chew PO SCH ×4 (00:34→20:39)
[2019-10-21] MEDS: ceFAZolin 1 GM in Premix Bag 1 BAG IV SCH ×2 (00:42→17:55)
[2019-10-21] MEDS: Acetaminophen/oxyCODONE 325-5 MG Tab PO PRN ×4 (04:11→17:41)
[2019-10-21] MEDS: Ibuprofen 600 MG Tab PO PRN ×2 (08:19→17:41)
[2019-10-21] MEDS: Docusate Sodium 100 MG Cap PO PRN (08:22)
--- NOTE | 2019-10-21 11:27 | PCM.SN ---
- Free Text/Narrative Note: Blood transfusion note: Hemoglobin yesterday morning was 8.5 patient was given Lasix patient was symptomatic with hemoglobin of 8.5 having dropped from 1.1 preoperatively. Was extremely symptomatic having attempted ambulation and had to have a wheelchair brought and almost fainted had to be returned her room in wheelchair. Repeat hemoglobin 8 point 6 in the afternoon at 1649 hrs. on 10/20/19. Decision was made to transfuse 2 units of packed red blood cells. Patient had positive antibody screen after having received rogue M at 28 weeks, he antibody screen was negative prior to giving the rogue program. 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 Patient is feeling much better today hemoglobin 9.5 patient is able to ambulate without dizziness asymptomatic.
--- NOTE | 2019-10-21 11:39 | PCM.DCSUM1 ---
Discharge Summary - Hospital Course Free Text/Narrative:: [facility] Post-Op/Procedure Note Patient Name: ELSA ALLEN Date of : 89 Patient Status: Inpatient Attending Provider: Alexei Davila Date: 10/19/19 19:49 Initialization Date: 10/19/19 19:49 - General Post-Op/Procedure Note Date of Surgery/Procedure: 10/19/19 Operative Procedure(s): Low segment transverse section Pre Op Diagnosis: 37+ weeks estimated gestational age, premature rupture membranes and labor onset less than 24 hours, gestational diabetes, prolonged second stage and failure to progress. Post-Op Diagnosis: Same Anesthesia Technique: Epidural Primary Surgeon: Alexei Davila Secondary Surgeon: Shanique Pacheco Anesthesia Provider: Joshua Manzo Order Clerk: Megan Peters (DEEPIKA) Reason Order Clerk Was Necessary: Retraction, assist in delivery, decrease comorbidity and mortality. Role of Order Clerk: Retraction, assist in delivery, decrease comorbidity and mortality. Fluid Replacement, Intraop: 2,200 Output, Urine Amount: 100 EBL in mLs: 500 Drain/Tube Comments:: Whitman Complications: None Condition: Good Free Text/Narrative:: Intake & Output 10/19/19 10/19/19 10/19/19 06:59 14:59 22:59 Intake Total 4000 Balance 4000 The patient was transported to the operating room and placed under epidural anesthesia in the supine position with a wedge under the right hip and right flank. Whitman catheter had been placed gravity drainage while patient was in labor and delivery. SCDs in place and functioning prior surgery. Ancef 3 g given intravenously prior surgery. Timeout performed.Trak-X placed. Vaginal prep performed with iodine. Abdominal prep performed. Patient prepared and draped in a sterile fashion. Adequate level of anesthesia was confirmed and patient's significant other brought to the operating room. A low segment transverse incision was made after injecting the planned incision area with 20 mL of 0.5% Marcaine. Incision was carried sharp section to into the anterior fascia peritoneal cavity was entered without difficulty. Bladder flap was created and pushed caudad. A low segment transverse was performed. Vacuum extraction was required for delivery of the 's head through the abdominal incision. In the green for less than 1 minute 2. The male liveborn was delivered at 1907 hrs. 8 lbs. 9 oz.( 3870 grams) Apgars 8/9. Dr. Souza attrition in attendance at delivery. Cord blood was collected from three-vessel cord. The placenta was removed manually inspected and discarded. Endometrial cavity was inspected. Sponge needle pack asthma count correct times one and the uterine incision closed in 2 layers. First layer running locking suture of 0 Monocryl. Second layer horizontal modified Lembert indications suture. One additional [id number] suture at the junction of the left and middle third of the incision. Hemostasis was obtained and uterus replaced into the abdominal cavity. The uterine incision reinspected. Sponge needle pack asthma sharp count correct 2. Abdominal cavity was then closed with running suture of #1 PDS. Skin was closed with subcuticular 3-0 Monocryl on Kevin needle. Dermabond Preneo applied. Clots were cleaned from the vagina at the end of the procedure. Patient was transported postanesthesia care unit in satisfactory condition. No blood transfusions were required. No blood transfusions are expected at present time. This note was created, at least in part, by the use of [employer] voice dictation system. Inadvertent typographical errors, due to software recognition problems, may exist. [facility] Provider Simple Note Patient Name: ELSA ALLEN Date of : [birth year] Patient Status: Inpatient Attending Provider: Alexei Davila Date: 10/21/19 11:24 Initialization Date: 10/21/19 11:24 - Free Text/Narrative Note: Blood transfusion note: Hemoglobin yesterday morning was 8.5 patient was given Lasix patient was symptomatic with hemoglobin of 8.5 having dropped from 1.1 preoperatively. Was extremely symptomatic having attempted ambulation and had to have a wheelchair brought and almost fainted had to be returned her room in wheelchair. Repeat hemoglobin 8 point 6 in the afternoon at 1649 hrs. on 10/20/19. Decision was made to transfuse 2 units of packed red blood cells. Patient had positive antibody screen after having received rogue M at 28 weeks, he antibody screen was negative prior to giving the rogue program. The body in my opinion was secondary to mariae lena M. Patient is feeling much better today hemoglobin 9.5 patient is able to ambulate without dizziness asymptomatic. HPI Initial Comments: [facility] Post-Op/Procedure Note Patient Name: ELSA ALLEN Date of : [birth year] Patient Status: Inpatient Attending Provider: Alexei Davila Date: 10/19/19 19:49 Initialization Date: 10/19/19 19:49 - General Post-Op/Procedure Note Date of Surgery/Procedure: 10/19/19 Operative Procedure(s): Low segment transverse section Pre Op Diagnosis: 37+ weeks estimated gestational age, premature rupture membranes and labor onset less than 24 hours, gestational diabetes, prolonged second stage and failure to progress. Post-Op Diagnosis: Same Anesthesia Technique: Epidural Primary Surgeon: Alexei Davila Secondary Surgeon: Shanique Pacheco Anesthesia Provider: Joshua Manzo Order Clerk: Megan Peters (DEEPIKA) Reason Order Clerk Was Necessary: Retraction, assist in delivery, decrease comorbidity and mortality. Role of Order Clerk: Retraction, assist in delivery, decrease comorbidity and mortality. Fluid Replacement, Intraop: 2,200 Output, Urine Amount: 100 EBL in mLs: 500 Drain/Tube Comments:: Whitman Complications: None Condition: Good Free Text/Narrative:: Intake & Output 10/19/19 10/19/19 10/19/19 06:59 14:59 22:59 Intake Total 4000 Balance 4000 The patient was transported to the operating room and placed under epidural anesthesia in the supine position with a wedge under the right hip and right flank. Whitman catheter had been placed gravity drainage while patient was in labor and delivery. SCDs in place and functioning prior surgery. Ancef 3 g given intravenously prior surgery. Timeout performed.Trak-X placed. Vaginal prep performed with iodine. Abdominal prep performed. Patient prepared and draped in a sterile fashion. Adequate level of anesthesia was confirmed and patient's significant other brought to the operating room. A low segment transverse incision was made after injecting the planned incision area with 20 mL of 0.5% Marcaine. Incision was carried sharp section to into the anterior fascia peritoneal cavity was entered without difficulty. Bladder flap was created and pushed caudad. A low segment transverse was performed. Vacuum extraction was required for delivery of the 's head through the abdominal incision. In the green for less than 1 minute 2. The male liveborn was delivered at 1907 hrs. 8 lbs. 9 oz.( 3870 grams) Apgars 8/9. Dr. Souza attrition in attendance at delivery. Cord blood was collected from three-vessel cord. The placenta was removed manually inspected and discarded. Endometrial cavity was inspected. Sponge needle pack asthma count correct times one and the uterine incision closed in 2 layers. First layer running locking suture of 0 Monocryl. Second layer horizontal modified Lembert indications suture. One additional [id number] suture at the junction of the left and middle third of the incision. Hemostasis was obtained and uterus replaced into the abdominal cavity. The uterine incision reinspected. Sponge needle pack asthma sharp count correct 2. Abdominal cavity was then closed with running suture of #1 PDS. Skin was closed with subcuticular 3-0 Monocryl on Kevin needle. Dermabond Preneo applied. Clots were cleaned from the vagina at the end of the procedure. Patient was transported postanesthesia care unit in satisfactory condition. No blood transfusions were required. No blood transfusions are expected at present time. This note was created, at least in part, by the use of [employer] voice dictation system. Inadvertent typographical errors, due to software recognition problems, may exist. [facility] Provider Simple Note Patient Name: ELSA ALLEN Date of : [birth year] Patient Status: Inpatient Attending Provider: Alexei Davila Date: 10/21/19 11:24 Initialization Date: 10/21/19 11:24 - Free Text/Narrative Note: Blood transfusion note: Hemoglobin yesterday morning was 8.5 patient was given Lasix patient was symptomatic with hemoglobin of 8.5 having dropped from 1.1 preoperatively. Was extremely symptomatic having attempted ambulation and had to have a wheelchair brought and almost fainted had to be returned her room in wheelchair. Repeat hemoglobin 8 point 6 in the afternoon at 1649 hrs. on 10/20/19. Decision was made to transfuse 2 units of packed red blood cells. Patient had positive antibody screen after having received rogue M at 28 weeks, he antibody screen was negative prior to giving the rogue program. 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 Patient is feeling much better today hemoglobin 9.5 patient is able to ambulate without dizziness asymptomatic. Brief History: [facility] . Post-Op/Procedure Note. Patient Name: ELSA ALLEN Record Number: [id number]. Date of : Patient Status: Inpatient. Attending Provider: Alexei Davilaount Number: [id number]. Date: 10/19/19 19:49Initialization Date: 10/19/19 19:49. - General Post-Op/Procedure Note. Date of Surgery/Procedure: 10/19/19. Operative Procedure(s): Low segment transverse section. Pre Op Diagnosis: 37+ weeks estimated gestational age, premature rupture membranes and labor onset less than 24 hours, gestational diabetes, prolonged second stage and failure to progress. Post-Op Diagnosis: Same. Anesthesia Technique: Epidural. Primary Surgeon: Alexei Davila. Secondary Surgeon: Shanique Pacheco. Anesthesia Provider: Joshua Manzo. Order Clerk: Megan Peters (DEEPIKA). Reason Order Clerk Was Necessary: Retraction, assist in delivery , decrease comorbidity and mortality. Role of Order Clerk: Retraction, assist in delivery, decrease comorbidity and mortality. Fluid Replacement, Intraop: 2, 200. Output, Urine Amount: 100. EBL in mLs: 500. Drain/Tube Comments:: Whitman. Complications: None. Condition: Good. Free Text/Narrative:: Intake & Output. 10/19/1911/. [id number]. Intake [id number]. [id number]. The patient was transported to the operating room and placed under epidural anesthesia in the supine position with a wedge under the right hip and right flank. Whitman catheter had been placed gravity drainage while patient was in labor and delivery. SCDs in place and functioning prior surgery. Ancef 3 g given intravenously prior surgery. Timeout performed.Trak-X placed. Vaginal prep performed with iodine. Abdominal prep performed. Patient prepared and draped in a sterile fashion. Adequate level of anesthesia was confirmed and patient's significant other brought to the operating room. A low segment transverse incision was made after injecting the planned incision area with 20 mL of 0.5% Marcaine. Incision was carried sharp section to into the anterior fascia peritoneal cavity was entered without difficulty. Bladder flap was created and pushed caudad. A low segment transverse was performed. Vacuum extraction was required for delivery of the 's head through the abdominal incision. In the green for less than 1 minute 2. The male liveborn was delivered at 1907 hrs. 8 lbs. 9 oz.( 3870 grams) Apgars 8/9. Dr. Souza attrition in attendance at delivery. Cord blood was collected from three-vessel cord. The placenta was removed manually inspected and discarded. Endometrial cavity was inspected. Sponge needle pack asthma count correct times one and the uterine incision closed in 2 layers. First layer running locking suture of 0 Monocryl. Second layer horizontal modified Lembert indications suture. One additional [id number] suture at the junction of the left and middle third of the incision. Hemostasis was obtained and uterus replaced into the abdominal cavity. The uterine incision reinspected. Sponge needle pack asthma sharp count correct 2. Abdominal cavity was then closed with running suture of #1 PDS. Skin was closed with subcuticular 3-0 Monocryl on Kevin needle. Dermabond Preneo applied. Clots were cleaned from the vagina at the end of the procedure. Patient was transported postanesthesia care unit in satisfactory condition. No blood transfusions were required. No blood transfusions are expected at present time. This note was created, at least in part, by the use of [employer] voice dictation system. Inadvertent typographical errors, due to software recognition problems, may exist. [facility] . Provider Simple Note. [facility] Number: [id number]. Date of : [birth year]Patient Status: Inpatient. Attending Provider: Alexei Davila Number: [id number]. Date: 10/21/19 11:24Initialization Date: 12/09 11:24. - Free Text/Narrative. Note: Blood transfusion note: Hemoglobin yesterday morning was 8.5 patient was given Lasix patient was symptomatic with hemoglobin of 8.5 having dropped from 1.1 preoperatively. Was extremely symptomatic having attempted ambulation and had to have a wheelchair brought and almost fainted had to be returned her room in wheelchair. Repeat hemoglobin 8 point 6 in the afternoon at 1649 hrs. on 10/20/19. Decision was made to transfuse 2 units of packed red blood cells. Patient had positive antibody screen after having received rogue M at 28 weeks, he antibody screen was negative prior to giving the rogue program. 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 Patient is feeling much better today hemoglobin 9.5 patient is able to ambulate without dizziness asymptomatic. Diagnosis: Stroke: No - Discharge Data Discharge Date: 10/21/19 Discharge Disposition: Home, Self-Care 01 Condition: Good - Referral to Home Health Primary Care Physician: Alexei Davila MD - Discharge Diagnosis/Problem(s) (1) 37 weeks gestation of SNOMED Code(s): 77507108 ICD Code: Z3A.37 - 37 WEEKS GESTATION OF Status: Acute Current Visit: Yes (2) Premature rupture of membranes SNOMED Code(s): 16173114 ICD Code: O42.90 - ENOCH ROM, 7TH0 BETW RUPT & ONST LABR, UNSP WEEKS OF GEST Status: Acute Current Visit: Yes Qualifiers: PROM onset of labor timing: onset of labor within 24 hours of rupture PROM gestational age: full term Qualified Code(s): O42.02 - Full-term premature rupture of membranes, onset of labor within 24 hours of rupture (3) Anemia due to acute blood loss SNOMED Code(s): 716117185 ICD Code: D62 - ACUTE POSTHEMORRHAGIC ANEMIA Status: Acute Current Visit : Yes Problem Details: Patient symptomatic secondary to acute blood loss anemia transfuse 2 units packed red blood cells. A shunt was unable to ambulate without feeling extremely dizzy and had to be placed in wheelchair and returned her room prior to her blood transfusions. - Patient Summary/Data Operative Procedure(s) Performed: Low segment transverse section Complications: Significant symptomatic dizziness secondary to acute blood loss transfuse 2 units packed red blood cells. Postoperative atelectasis (see CT scan no indication of pneumonia but patient placed on Ancef as precaution for 24 hours.) Chest clear today. Consults: None Hospital Course: Patient required 2 units packed red blood cell transfusion due to significant symptoms of dizziness and unable to ambulate without assistance requiring wheelchair to return to room prior to blood transfusion, related to acute blood loss transverse section. - Patient Instructions Diet: Usual Diet as Tolerated Driving: Do Not Drive (2 weeks) Showering/Bathing: May Shower, No Tub Bathing/Swimming (6 weeks) Wound/Incision Care: Keep Operative Site/Wound Site Clean and Dry Notify Provider of: Fever, Increased Pain, Swelling and Redness, Drainage, Nausea and/or Vomiting - Discharge Plan *PRESCRIPTION DRUG MONITORING PROGRAM REVIEWED*: Yes *COPY OF PRESCRIPTION DRUG MONITORING REPORT IN PATIENT MARY: Yes Prescriptions/Med Rec: Acetaminophen/oxyCODONE [Percocet 325-5 MG] 1 tab PO Q8H PRN #15 tablet PRN Reason: Pain (Moderate 4-6) Home Medications: Home Meds Vit 90/Iron Fum/Folic [ Formula] 1 tab PO DAILY 04/19/17 [ History] hydrOXYzine HCl [Hydroxyzine HCl] 1 tab PO DAILY 10/19/19 [History] Acetaminophen [Tylenol] 650 mg PO Q6H PRN tablet 10/21/19 [Rx] Acetaminophen/oxyCODONE [Percocet 325-5 MG] 1 tab PO Q8H PRN #15 tablet [Rx] Docusate Sodium [Colace] 100 mg PO Q12H PRN cap 10/21/19 [Rx] Ibuprofen [Motrin] 600 mg PO Q6H PRN tablet 10/21/19 [Rx] Witch Orin [Tucks] 1 pad TOP ASDIRECTED PRN pad 10/21/19 [Rx] Referrals: Ollie Ponce MD [Physician] - (Will call Tuesday for an appointment to see Dr. Ponce in 2 weeks.) - Discharge Summary/Plan Comment DC Time >30 min.: No - Patient Data Vitals - Most Recent: Last Vital Signs Temp 97.9 F 10/21/19 03:08 Pulse 80 10/21/19 03:09 Resp 16 10/21/19 03:08 BP 91/49 L 10/21/19 03:08 Pulse Ox 95 10/21/19 03:09 Weight - Most Recent: 254 lb I&O - Last 24 hours: Intake & Output 10/20/19 10/21/19 10/21/19 22:59 06:59 14:59 Intake Total 200 160 120 Output Total 700 850 Balance -500 -690 120 Lab Results - Last 24 hrs: Laboratory Results - last 24 hr 10/19/19 10/20/19 10/20/19 Range/Units 06:00 16:49 16:49 WBC 11.41 H (3.98-10.04) K/mm3 RBC 3.06 L (3.98-5.22) M/mm3 Hgb 8.6 L (11.2-15.7) gm/dl Hct 27.5 L (34.1-44.9) % MCV 89.9 (79.4-94.8) fl MCH 28.1 (25.6-32.2) pg MCHC 31.3 L (32.2-35.5) g/dl RDW Std Deviation 41.2 (36.4-46.3) fL Plt Count 227 (182-369) K/mm3 MPV 9.6 (9.4-12.3) fl Neut % (Auto) 69.3 (34.0-71.1) % Lymph % (Auto) 21.0 (19.3-51.7) % [place] % (Auto) 8.1 (4.7-12.5) % Eos % (Auto) 1.1 (0.7-5.8) Baso % (Auto) 0.2 (0.1-1.2) % Neut # (Auto) 7.92 H (1.56-6.13) K/mm3 Lymph # (Auto) 2.40 (1.18-3.74) K/mm3 [place] # (Auto) 0.92 H (0.24-0.36) K/mm3 Eos # (Auto) 0.12 (0.04-0.36) K/mm3 Baso # (Auto) 0.02 (0.01-0.08) K/mm3 Sodium 135 L (136-145) mEq/L Potassium 4.2 (3.5-5.1) mEq/L Chloride 104 (98-107) mEq/L Carbon Dioxide 27 (21-32) mEq/L Anion Gap 8.2 (5-15) BUN 13 (7-18) mg/dL Creatinine 0.7 (0.55-1.02) mg/dL Est Cr Clr Drug Dosing 100.74 mL/min Estimated GFR (MDRD) > 60 (>60) mL/min BUN/Creatinine Ratio 18.6 H (14-18) Glucose 108 H (74-106) mg/dL Calcium 8.8 (8.5-10.1) mg/dL Total Bilirubin 0.2 (0.2-1.0) mg/dL AST 18 (15-37) U/L ALT 16 (14-59) U/L Alkaline Phosphatase 87 (46-116) U/L Total Protein 5.4 L (6.4-8.2) g/dl Albumin 1.9 L (3.4-5.0) g/dl Globulin 3.5 gm/dL Albumin/Globulin Ratio 0.5 L (1-2) Crossmatch See Detail 10/21/19 10/21/19 Range/Units 06:10 06:10 WBC 10.80 H (3.98-10.04) K/mm3 RBC 3.37 L (3.98-5.22) M/mm3 Hgb 9.5 L (11.2-15.7) gm/dl Hct 30.1 L (34.1-44.9) % MCV 89.3 (79.4-94.8) fl MCH 28.2 (25.6-32.2) pg MCHC 31.6 L (32.2-35.5) g/dl RDW Std Deviation 43.0 (36.4-46.3) fL Plt Count 222 (182-369) K/mm3 MPV 9.4 (9.4-12.3) fl Neut % (Auto) 71.8 H (34.0-71.1) % Lymph % (Auto) 18.9 L (19.3-51.7) % [place] % (Auto) 6.9 (4.7-12.5) % Eos % (Auto) 1.8 (0.7-5.8) Baso % (Auto) 0.2 (0.1-1.2) % Neut # (Auto) 7.77 H (1.56-6.13) K/mm3 Lymph # (Auto) 2.04 (1.18-3.74) K/mm3 [place] # (Auto) 0.74 H (0.24-0.36) K/mm3 Eos # (Auto) 0.19 (0.04-0.36) K/mm3 Baso # (Auto) 0.02 (0.01-0.08) K/mm3 Sodium 137 (136-145) mEq/L Potassium 4.0 (3.5-5.1) mEq/L Chloride 104 (98-107) mEq/L Carbon Dioxide 25 (21-32) mEq/L Anion Gap 12.0 (5-15) BUN 13 (7-18) mg/dL Creatinine 0.7 (0.55-1.02) mg/dL Est Cr Clr Drug Dosing 100.74 mL/min Estimated GFR (MDRD) > 60 (>60) mL/min BUN/Creatinine Ratio 18.6 H (14-18) Glucose 111 H (74-106) mg/dL Calcium 8.6 (8.5-10.1) mg/dL Total Bilirubin 0.2 (0.2-1.0) mg/dL AST 22 (15-37) U/L ALT 13 L (14-59) U/L Alkaline Phosphatase 81 (46-116) U/L Total Protein 5.3 L (6.4-8.2) g/dl Albumin 1.8 L (3.4-5.0) g/dl Globulin 3.5 gm/dL Albumin/Globulin Ratio 0.5 L (1-2) Crossmatch Med Orders - Current: Current Medications Acetaminophen (Tylenol) 650 mg PO Q4H PRN PRN Reason: mild pain or fever Diphenhydramine HCl (Benadryl) 25 mg IVPUSH Q6H PRN PRN Reason: Itching or Nausea Docusate Sodium (Colace) 100 mg PO Q12H PRN PRN Reason: Constipation Last Admin: 10/21/19 08:22 Dose: 100 mg Ephedrine Sulfate (Ephedrine Sulfate) 5 mg IVPUSH SEECOMMENT PRN PRN Reason: Other Fentanyl (Sublimaze) 50 mcg IVPUSH Q5M PRN PRN Reason: Pain Sodium Chloride (Normal Saline) 100 mls @ 75 mls/hr IV ASDIRECTED [facility] Last Admin: 10/20/19 11:12 Dose: 75 mls/hr Cefazolin Sodium/Dextrose 1 gm (/ Premix) 50 mls @ 100 mls/hr IV Q12H [facility] Last Admin: 10/21/19 00:42 Dose: 100 mls/hr Sodium Chloride (Normal Saline) 100 mls @ 25 mls/hr IV ASDIRECTED [facility] Stop: 10/22/19 01:59 Last Admin: 10/20/19 22:30 Dose: 25 mls/hr Ibuprofen (Motrin) 600 mg PO Q6H PRN PRN Reason: mild pain or fever Last Admin: 10/21/19 08:19 Dose: 600 mg Naloxone HCl (Narcan) 0.1 mg IVPUSH SEECOMMENT PRN PRN Reason: Respiratory Depression Ondansetron HCl (Zofran) 4 mg IV Q4H PRN PRN Reason: Nausea/Vomiting Oxycodone/Acetaminophen (Percocet 325-5 Mg) 1 tab PO Q4H PRN PRN Reason: Pain (moderate 4-6) Last Admin: 10/21/19 08:18 Dose: 1 tab Simethicone (Simethicone) 80 mg PO PCBED [facility] Last Admin: 10/21/19 08:19 Dose: 80 mg Sodium Chloride (Saline Flush) 10 ml FLUSH ASDIRECTED PRN PRN Reason: Keep Vein Open Sodium Chloride (Saline Flush) 10 ml FLUSH ONETIME PRN PRN Reason: IV FLUSH Witch Orin (Tucks) 1 pad TOP ASDIRECTED PRN PRN Reason: Perineal Comfort Measure Discontinued Medications Acetaminophen/Butalbital/Caffeine (Fioricet 325-50-40 Mg) 1 tab PO Q4H PRN PRN Reason: Headache/Pain Last Admin: 10/19/19 09:42 Dose: 1 tab Bupivacaine HCl (Marcaine 0.5%) Confirm Administered Dose 30 ml .ROUTE .STK-MED ONE Stop: 10/19/19 18:29 Last Admin: 10/19/19 19:01 Dose: 20 ml Cefazolin Sodium (Ancef) Confirm Administered Dose 2 gm .ROUTE .STK-MED ONE Stop: 10/19/19 18:59 Cefazolin Sodium (Ancef) Confirm Administered Dose 1 gm .ROUTE .STK-MED ONE Stop: 10/19/19 18:59 Citric Acid/Sodium Citrate (Bicitra Solution) Confirm Administered Dose 30 ml .ROUTE .STK-MED ONE Stop: 10/19/19 18:07 Last Admin: 10/19/19 18:15 Dose: 30 ml Citric Acid/Sodium Citrate (Bicitra Solution) 30 ml PO ONETIME ONE Stop: 10/19/19 18:19 Last Admin: 10/20/19 15:27 Dose: Not Given Diphenhydramine HCl (Benadryl) 25 mg IVPUSH Q6H PRN PRN Reason: pruritis Diphenhydramine HCl (Benadryl) 25 mg IVPUSH Q6H PRN PRN Reason: Pruritis Ephedrine Sulfate (Ephedrine Sulfate) 5 mg IVPUSH ASDIRECTED PRN PRN Reason: Hypotension Last Admin: 10/19/19 08:58 Dose: 5 mg Fentanyl (Sublimaze) 100 mcg EPIDUR Q3H PRN PRN Reason: Pain Last Admin: 10/19/19 08:05 Dose: 100 mcg Fentanyl/Bupivacaine HCl (Fentanyl/Bupivacaine/Ns 2 Mcg-0.125% 100 Ml) 100 ml EPIDUR CONTINUOUS PRN PRN Reason: Pain Last Admin: 10/19/19 08:06 Dose: 100 ml Furosemide (Lasix) 20 mg IVPUSH NOW ONE Stop: 10/20/19 10:42 Last Admin: 10/20/19 10:52 Dose: 20 mg Lactated Ringer's (Ringers, Lactated) 1,000 mls @ 100 mls/hr IV ASDIRECTED KAREN Last Admin: 10/19/19 18:44 Dose: 100 mls/hr Oxytocin/Lactated Ringer's (Pitocin In Lr 10 Units/1,000 Ml) 10 unit in 1,000 mls @ 12 mls/hr IV TITRATE KAREN; Protocol Last Titration: 10/19/19 13:44 Dose: 12 munits/min, 72 mls/hr Oxytocin/Lactated Ringer's (Pitocin In Lr 10 Units/1,000 Ml) 10 unit in 1,000 mls @ 500 mls/hr IV .CONTINUOUS KAREN Dextrose/Lactated Ringer's (Dextrose 5%-Lactated Ringers) 1,000 mls @ 125 mls/ hr IV ASDIRECTED KAREN Stop: 10/20/19 05:22 Last Admin: 10/20/19 00:05 Dose: 125 mls/hr Iopamidol (Isovue-370 (76%)) 100 ml IVPUSH ONETIME ONE Stop: 10/20/19 10:48 Last Admin: 10/20/19 11:12 Dose: 100 ml Ketorolac Tromethamine (Toradol) 30 mg IVPUSH ONETIME KAREN Last Admin: 10/19/19 20:07 Dose: 30 mg Ketorolac Tromethamine (Toradol) 30 mg IVPUSH Q6H KAREN Stop: 10/20/19 14:01 Last Admin: 10/20/19 14:18 Dose: 30 mg Metoclopramide HCl (Reglan) Confirm Administered Dose 10 mg .ROUTE .STK-MED ONE Stop: 10/19/19 18:07 Last Admin: 10/19/19 18:15 Dose: 10 mg Metoclopramide HCl (Reglan) 10 mg IVPUSH ONETIME ONE Stop: 10/19/19 18:19 Last Admin: 10/20/19 15:27 Dose: Not Given Morphine Sulfate (Duramorph Pf) Confirm Administered Dose 10 mg .ROUTE .STK-MED ONE Stop: 10/19/19 18:48 Nalbuphine HCl (Nubain) 10 mg IVPUSH Q2H PRN PRN Reason: Pain Ondansetron HCl (Zofran) 4 mg IVPUSH Q4H PRN PRN Reason: Nausea/Vomiting Last Admin: 10/19/19 19:59 Dose: 4 mg Ondansetron HCl (Zofran) 4 mg IVPUSH ONETIME PRN PRN Reason: Nausea/Vomiting Oxytocin (Pitocin) Confirm Administered Dose 20 unit .ROUTE .STK-MED ONE Stop: 10/19/19 19:10 Oxytocin (Pitocin) Confirm Administered Dose 20 unit .ROUTE .STK-MED ONE Stop: 10/19/19 19:34 Phenylephrine HCl (Phenylephrine In Ns 100 Mcg/Ml) Confirm Administered Dose 1 mg .ROUTE .STK-MED ONE Stop: 10/19/19 18:52 Phenylephrine HCl (Phenylephrine In Ns 100 Mcg/Ml) Confirm Administered Dose 1 mg .ROUTE .STK-MED ONE Stop: 10/19/19 19:11 Phenylephrine HCl (Phenylephrine In Ns 100 Mcg/Ml) Confirm Administered Dose 1 mg .ROUTE .STK-MED ONE Stop: 10/19/19 19:23 Sodium Chloride (Saline Flush) 10 ml FLUSH ASDIRECTED PRN PRN Reason: Keep Vein Open Last Admin: 10/20/19 11:13 Dose: 10 ml
[2019-10-21 17:23] VITALS: BP 118/77; PULSE 71
--- NOTE | 2019-10-23 12:30 | CT ---
CT chest Technique: Multiple axial sections through the chest were obtained. Intravenous contrast was utilized. Study has been performed as a pulmonary angiogram protocol. Comparison: No prior chest imaging is available. Findings: Pulmonary arteries are opacified. No filling defects are seen to indicate pulmonary embolism. Mediastinum and hilar regions show no adenopathy or mass. No pericardial thickening is seen. Soft tissue density seen within the superior mediastinum which is felt to represent residual thymic tissue. No axillary adenopathy is seen. Visualized upper abdominal structures show no discrete abnormality. Aorta shows no aneurysm. Mild areas of increased density are noted within both lung bases. Uncertain if findings represent prominent areas of atelectasis or represent pneumonia. Bone window settings were reviewed which appear within normal limits for the patient's age. Impression: 1. Increased density within both lung bases. As mentioned above, this can represent prominent areas of atelectasis as well as pneumonia if patient has infectious symptoms. 2. No findings of pulmonary embolism. 3. Nothing acute is otherwise seen on CT study of the chest. Diagnostic code #3 This report was dictated in [place] Standard Time I agree with preliminary report issued by [facility] ([facility] report finalized on 10/20/19, 1:13 PM Central Time)
== END 2019-10-21 17:45 | disposition home or self-care (01) | DRG 787 ==
LOC: JD.OBCHECK 05:31 → JD.OB 06:01 → OBSVTOIN 19:07
PROVIDERS: ADMIT Obstetrics & Gynecology; ATTEND Obstetrics & Gynecology
PROC: 10D00Z1 Extraction of Products of Conception, Low, Open Approach (ICD-10-PCS; principal; 2019-10-19)
PROC: 3E0R3BZ Introduction of Anesthetic Agent into Spinal Canal, Percutaneous Approach (ICD-10-PCS; 2019-10-19)
PROC: 30233N1 Transfusion of Nonautologous Red Blood Cells into Peripheral Vein, Percutaneous Approach (ICD-10-PCS; 2019-10-19)
DX: O63.1 Prolonged second stage (of labor) (principal); D62 Acute posthemorrhagic anemia; J95.89 Other postprocedural complications and disorders of respiratory system, not elsewhere classified; J98.11 Atelectasis; O99.213 Obesity complicating pregnancy, third trimester; E66.9 Obesity, unspecified; O24.425 Gestational diabetes mellitus in childbirth, controlled by oral hypoglycemic drugs; O42.02 Full-term premature rupture of membranes, onset of labor within 24 hours of rupture; O62.2 Other uterine inertia; O99.013 Anemia complicating pregnancy, third trimester; O99.52 Diseases of the respiratory system complicating childbirth; Z3A.37 37 weeks gestation of pregnancy; Z37.0 Single live birth; Z87.891 Personal history of nicotine dependence
CPT/HCPCS: 36415; 36430; 51702; 59025; 71275; 71275-26; 76815; 76815-26; 80053; 82962; 85025; 86592; 86850; 86870; 86900; 86901; 86922; 93005; 94762; A9270-GY; J0690; J1885; J2270; J2370; J2405; J2590; J2765; J3010; J3490; J7030; J7042; J7120; P9016; Q9967